=== PATIENT | female | born 1940 | race Caucasian/White ===

== ENCOUNTER 2023-01-14 23:07 | Emergency (ER) | payer MEDICARE ==
[2023-01-14] MEDS ORDERED: XYLOCAINE HCl Viscous MM ONE (23:08)
[2023-01-14 23:55] VITALS: TEMP 98
[2023-01-15] MEDS ORDERED: MORPHINE SULFATE 4 MG INJ IV ONE (00:01)
[2023-01-15] MEDS ORDERED: Zofran 4 MG/2 ML VIAL IV ONE (00:01)
--- NOTE | 2023-01-15 00:06 | ERPHSYRPT ---
- History of Present Illness Time Seen by Provider: 01/14/23 23:16 Historian: patient Exam Limitations: no limitations Patient Subjective Stated Complaint: pt states "my stomach has been hurting for a couple days." Triage Nursing Assessment: pt ambulatory to bed by self without assistance, pt alert and oriented x3, skin pwd, pt c/o intermittent LUQ x2 days, last bm was 01/14/23, last oral intake was 199901/14/23, pt denies n/v/d, pain is worse upon palpation. Physician History: 82 years old female presented in the ER with chief complaint of left upper quadrant/left flank pain for the last 2 days. Dull aching to sharp, moderate to severe in intensity without any significant aggravating or relieving factors. Denies associated nausea vomiting or diarrhea. Last bowel movement was yesterday. Patient denies any urinary complaints. No chest pain palpitations or shortness of breath reported. Patient has no history of hypertension and does not take any medication but her blood pressure is in 200s. She denies any headache, dizziness and lightheadedness. Allergies/Adverse Reactions: No Known Drug Allergies Allergy (Verified 01/18/23 23:13) Home Medications: PANTOPRAZOLE 40 mg Tablet [Protonix 40MG Tablet] 40 mg PO DAILY 01/18/23 [History] Hx Tetanus, Diphtheria Vaccination/Date Given: No Hx Influenza Vaccination/Date Given: No Hx Pneumococcal Vaccination/Date Given: No Immunizations Up to Date: No Travel Risk - International Travel Have you traveled outside of the country in past 3 weeks: No - Coronavirus Screening Are you exhibiting any of the following symptoms?: No Close contact with a COVID-19 positive Pt in past 14-21 Days: No - Vaccine Status Have you recieved a Covid-19 vaccination: No - Review of Systems Constitutional: No Symptoms Eyes: No Symptoms Ears, Nose, & Throat: No Symptoms Respiratory: No Symptoms Cardiac: No Symptoms Abdominal/Gastrointestinal: Abdominal Pain Genitourinary Symptoms: No Symptoms Musculoskeletal: No Symptoms Skin: No Symptoms Neurological: No Symptoms Psychological: No Symptoms Hematologic/Lymphatic: No Symptoms Immunological/Allergic: No Symptoms - Past Medical History Pertinent Past Medical History: No Neurological History: No Pertinent History ENT History: No Pertinent History Cardiac History: No Pertinent History Respiratory History: No Pertinent History Endocrine Medical History: No Pertinent History Musculoskeletal History: No Pertinent History GI Medical History: No Pertinent History History: No Pertinent History Psycho-Social History: No Pertinent History Female Reproductive Disorders: No Pertinent History Other Medical History: pt denies - Past Surgical History Past Surgical History: Yes Neuro Surgical History: No Pertinent History Cardiac: Angioplasty Respiratory: No Pertinent History Gastrointestinal: Appendectomy Genitourinary: No Pertinent History Musculoskeletal: No Pertinent History Female Surgical History: Hysterectomy Other Surgical History: "lens in eye" - Social History Smoking Status: Never smoker Exposure to second hand smoke: No Drug Use: none Patient Lives Alone: Yes - Nursing Vital Signs Nursing Vital Signs: Initial Vital Signs Temperature 98.0 F 01/14/23 23:54 Pulse Rate 99 H 01/14/23 23:54 Respiratory Rate 18 01/14/23 23:54 Blood Pressure 222/96 01/14/23 23:54 O2 Sat by Pulse Oximetry 97 01/14/23 23:54 Pain Scale Pain Intensity 3 - Physical Exam General Appearance: no apparent distress, alert Eye Exam: PERRL/EOMI Ears, Nose, Throat Exam: normal ENT inspection Neck Exam: normal inspection Respiratory Exam: normal breath sounds, lungs clear Cardiovascular Exam: regular rate/rhythm, normal heart sounds Gastrointestinal/Abdomen Exam: soft, normal bowel sounds, tenderness (Right upper quadrant/right flank with no guarding or rebound tenderness) Extremity Exam: normal inspection, normal range of motion Neurologic Exam: alert, oriented x 3, cooperative Skin Exam: normal color SpO2 Interpretation: normal SpO2: 97 O2 Delivery: Room Air Ordered Tests: Medication Summary Discontinued Medications Generic Name Dose Route Start Last Admin Trade Name Freq PRN Reason Stop Dose Admin Al Hydrox/Mg Hydrox/Simethicone Confirm 01/15/23 02:17 Mag Hydrox/Al Hydrox/Simeth 30 Ml Udcup Administered 01/15/23 02:18 Dose 30 ml .ROUTE .STK-MED ONE Lidocaine HCl 20 ml 01/14/23 23:08 Lidocaine Hcl Viscous 1 Ml MM 01/14/23 23:09 .STK-MED ONE Morphine Sulfate 4 mg 01/15/23 00:01 01/15/23 00:14 Morphine Sulfate 4 Mg/Ml Injection IV 01/15/23 00:02 Not Given STAT ONE Ondansetron HCl 4 mg 01/15/23 00:01 01/15/23 00:14 Ondansetron Hcl 4 Mg/2 Ml Vial IV 01/15/23 00:02 Not Given STAT ONE Pantoprazole Sodium Confirm 01/15/23 02:17 Pantoprazole 40 Mg Vial Administered 01/15/23 02:18 Dose 40 mg IV .[facility]-MED ONE Lab/Rad Data: Laboratory Result Diagrams 01/15/23 00:00 01/15/23 00:00 Laboratory Results 01/15/23 01/15/23 01/15/23 Range/Units 00:01 00:01 00:00 WBC (4.0-10.5) x10^3/uL RBC (4.1-5.4) x10^6/uL Hgb (12.0-16.0) g/dL Hct (35-47) % MCV (78-100) fL MCH (26-32) pg MCHC (32-36) g/dL RDW (11.5-14.0) % Plt Count (150-450) x10^3/uL MPV (7.5-11.0) fL Gran % (36.0-66.0) % Immature Gran % (Auto) (0.00-0.4) % Nucleat RBC Rel Count (0.00-0.1) % Eos # (Auto) (0-0.5) x10^3/uL Immature Gran # (Auto) (0.00-0.03) x10^3u/L Absolute Lymphs (auto) (1.0-4.6) x10^3/uL Absolute Monos (auto) (0.0-1.3) x10^3/uL Absolute Nucleated RBC (0.00-0.01) x10^3u/L Lymphocytes % (24.0-44.0) % Monocytes % (0.0-12.0) % Eosinophils % (0.00-5.0) % Basophils % (0.0-0.4) % Absolute Granulocytes (1.4-6.9) x10^3/uL Basophils # (0-0.4) x10^3/uL Sodium (137-145) mmol/L Potassium (3.5-5.1) mmol/L Chloride (98-107) mmol/L Carbon Dioxide (22-30) mmol/L Anion Gap (5-15) MEQ/L BUN (7-17) mg/dL Creatinine (0.52-1.04) mg/dL Estimated GFR ML/MIN Glucose (74-106) mg/dL Lactic Acid 1.5 (0.4-2.0) Calcium (8.4-10.2) mg/dL Total Bilirubin (0.2-1.3) mg/dL AST (14-36) U/L ALT (0-35) U/L Alkaline Phosphatase (38-126) U/L Troponin I < 0.012 (0.000-0.034) ng/mL Serum Total Protein (6.3-8.2) g/dL Albumin (3.5-5.0) g/dL Lipase (23-300) U/L Urine Color Yellow (Yellow) Urine Appearance Clear (Clear) Urine pH 5.5 (4.6-8.0) Ur Specific [place] 1.015 (1.005-1.030) Urine Protein Negative (Negative) Urine Glucose (UA) Negative (Negative) mg/dL Urine Ketones Negative (Negative) Urine Blood Negative (Negative) Urine Nitrite Negative (Negative) Urine Bilirubin Negative (Negative) Urine Urobilinogen 1.0 A (0.2) mg/dL Ur Leukocyte Esterase Trace A (Negative) U Hyaline Cast (Auto) NONE SEEN (0-2) /LPF Urine Microscopic RBC 0-2 (0-5) /HPF Urine Microscopic WBC 3-5 (0-5) /HPF Ur Epithelial Cells Rare (None Seen) /HPF Urine Bacteria None Seen (None Seen) /HPF Urine Culture Reflexed NO (NO) 01/15/23 01/15/23 Range/Units 00:00 00:00 WBC 8.2 (4.0-10.5) x10^3/uL RBC 5.00 (4.1-5.4) x10^6/uL Hgb 13.5 (12.0-16.0) g/dL Hct 42.7 (35-47) % MCV 85.4 (78-100) fL MCH 27.0 (26-32) pg MCHC 31.6 L (32-36) g/dL RDW 14.0 (11.5-14.0) % Plt Count 256 (150-450) x10^3/uL MPV 9.1 (7.5-11.0) fL Gran % 49.9 (36.0-66.0) % Immature Gran % (Auto) 0.4 (0.00-0.4) % Nucleat RBC Rel Count 0.0 (0.00-0.1) % Eos # (Auto) 0.26 (0-0.5) x10^3/uL Immature Gran # (Auto) 0.03 (0.00-0.03) x10^3u/L Absolute Lymphs (auto) 3.10 (1.0-4.6) x10^3/uL Absolute Monos (auto) 0.65 (0.0-1.3) x10^3/uL Absolute Nucleated RBC 0.00 (0.00-0.01) x10^3u/L Lymphocytes % 37.9 (24.0-44.0) % Monocytes % 8.0 (0.0-12.0) % Eosinophils % 3.2 (0.00-5.0) % Basophils % 0.6 (0.0-0.4) % Absolute Granulocytes 4.08 (1.4-6.9) x10^3/uL Basophils # 0.05 (0-0.4) x10^3/uL Sodium 138 (137-145) mmol/L Potassium 3.9 (3.5-5.1) mmol/L Chloride 105 (98-107) mmol/L Carbon Dioxide 21 L (22-30) mmol/L Anion Gap 15.9 H (5-15) MEQ/L BUN 17 (7-17) mg/dL Creatinine 0.69 (0.52-1.04) mg/dL Estimated GFR > 60.0 ML/MIN Glucose 109 H (74-106) mg/dL Lactic Acid (0.4-2.0) Calcium 9.0 (8.4-10.2) mg/dL Total Bilirubin 0.40 (0.2-1.3) mg/dL AST 25 (14-36) U/L ALT 19 (0-35) U/L Alkaline Phosphatase 121 (38-126) U/L Troponin I (0.000-0.034) ng/mL Serum Total Protein 7.6 (6.3-8.2) g/dL Albumin 4.2 (3.5-5.0) g/dL Lipase 116 (23-300) U/L Urine Color (Yellow) Urine Appearance (Clear) Urine pH (4.6-8.0) Ur Specific [place] (1.005-1.030) Urine Protein (Negative) Urine Glucose (UA) (Negative) mg/dL Urine Ketones (Negative) Urine Blood (Negative) Urine Nitrite (Negative) Urine Bilirubin (Negative) Urine Urobilinogen (0.2) mg/dL Ur Leukocyte Esterase (Negative) U Hyaline Cast (Auto) (0-2) /LPF Urine Microscopic RBC (0-5) /HPF Urine Microscopic WBC (0-5) /HPF Ur Epithelial Cells (None Seen) /HPF Urine Bacteria (None Seen) /HPF Urine Culture Reflexed (NO) - Progress Progress: improved, re-examined Progress Note: 01/15/23 00:06 82 years old female presented in the ER with chief complaint of left upper quadrant/left flank pain for the last 2 days. Dull aching to sharp, moderate to severe in intensity without any significant aggravating or relieving factors. Denies associated nausea vomiting or diarrhea. Last bowel movement was yesterday. Patient denies any urinary complaints. No chest pain palpitations or shortness of breath reported. Patient has no history of hypertension and does not take any medication but her blood pressure is in 200s. She denies any headache, dizziness and lightheadedness. Patient has tenderness right upper quadrant/right flank. We will give pain medication for we will obtain an acute abdomen work-up including CT abdomen pelvis. 01/16/23 Patient is feeling better on reevaluation. Acute abdomen lab work fairly unremarkable with normal white count, no acute derangements and chemistries, no UTI. CT abdomen pelvis did not show any acute findings, does have some renal stone nonobstructing and diverticula without diverticulitis. I would not give her antibiotics at this point with negative CT and normal white count. Recommended outpatient follow-up. Discussed signs symptoms of worsening needing return to ER which she seems understanding Patient was discharged at [facility] downtime Counseled pt/family regarding: lab results, diagnosis, need for follow-up, rad results Medical Desision Making - Diagnostic Testing Diagnostic test were ordered, analyzed, and reviewed by me: Yes Radiological Interpretation: Reviewed by me - Departure Departure Disposition: Home Clinical Impression: Left sided abdominal pain Condition: Stable Critical Care Time: No Referrals: DOCTOR,NO FAMILY [Primary Care Provider] - Follow up with PCP 1 day Instructions: Severe Abdominal Pain, Adult (DC)
[2023-01-15 00:23] LABS: Absolute Neutrophil Ct (ANC) 4.08 x10^3/uL (1.4-6.9); BASOPHIL % 0.6 % (0.0-0.4); Basophil (Absolute #) 0.05 x10^3/uL (0-0.4); Eosinophil % 3.2 % (0.00-5.0); Eosinophil (Absolute #) 0.26 x10^3/uL (0-0.5); Hematocrit 42.7 % (35-47); Hemoglobin 13.5 g/dL (12.0-16.0); IMMATURE GRAN # 0.03 x10^3u/L (0.00-0.03); IMMATURE GRAN % 0.4 % (0.00-0.4); Lymphocytes % 37.9 % (24.0-44.0); Mean Cell Volume 85.4 fL (78-100); Mean Corpuscular Hgb Concent. 31.6 g/dL (32-36); Mean Platelet Volume 9.1 fL (7.5-11.0); Monocyte (Absolute #) 0.65 x10^3/uL (0.0-1.3); Neutrophil % 49.9 % (36.0-66.0); Platelet Count 256 x10^3/uL (150-450); White Blood Count 8.2 x10^3/uL (4.0-10.5)
[2023-01-15] MEDS ORDERED: MAALOX ES 30 ML UNIT DOSE ONE (02:17)
[2023-01-15] MEDS ORDERED: PROTONIX 40 MG IV IV ONE (02:17)
[2023-01-15 03:52] VITALS: BP 158/86; PULSE 87; RESP 15
[2023-01-15 04:25] LABS: Appearance Clear (Clear); Bacteria None Seen /HPF (None Seen); Bilirubin Negative (Negative); Blood Negative (Negative); Epithelial Cells Rare /HPF (None Seen); Glucose, Urine Negative (Negative); Hyaline Casts NONE SEEN /LPF (0-2); Ketones Negative (Negative); Leukocyte Esterase Trace (Negative); Nitrite Negative (Negative); Ph 5.5 (4.6-8.0); Protein,Urine Dip Negative (Negative); RBC 0-2 /HPF (0-5); Specific Gravity 1.015 (1.005-1.030)
[2023-01-15 04:26] LABS: ADD URINE CULTURE? NO (NO)
[2023-01-15 04:28] LABS: ALBUMIN 4.2 g/dL (3.5-5.0); ALKALINE PHOSPHATASE 121 U/L (38-126); BLOOD UREA NITROGEN 17 mg/dL (7-17); CHLORIDE 105 mmol/L (98-107); Carbon Dioxide 21 mmol/L (22-30); Creatinine 1 0.69 mg/dL (0.52-1.04); EST GLOMERULAR FILTRATION RATE > 60.0 ML/MIN; Glucose 109 mg/dL (74-106); LIPASE 116 U/L (23-300); Potassium 3.9 mmol/L (3.5-5.1); SGOT/AST 25 U/L (14-36); SGPT/ALT 19 U/L (0-35); SODIUM 138 mmol/L (137-145); Total Protein 7.6 g/dL (6.3-8.2)
[2023-01-15 04:47] LABS: ANION GAP 15.9 MEQ/L (5-15)
--- NOTE | 2023-01-15 09:36 | XRAY ---
CLINICAL HISTORY:LUQ/Flankpain COMPARISON:None. TECHNIQUE:CT of the abdomen and pelvis was performed with axial images as well as sagittal and coronal reconstruction images without intravenous contrast. FINDINGS: The liver is normal in size, and morphology and appears unremarkable with no intrahepatic or extrahepatic bile duct dilation. Unremarkable appearing gallbladder with no stone wall thickening or pericholecystic inflammatory changes or fluid. Unremarkable appearing pancreas. No pancreatic mass or ductal dilatation is seen. Unremarkable appearing spleen. The adrenal glands are normal. The kidneys appear unremarkable with no cysts masses or hydronephrosis. A non-obstructing calculus is noted at the lower pole of the left kidney measuring 6.5 x 5.5 mm. A small cyst is noted at the lower pole of the left kidney measuring 2 cm. The ureters are normal with no stones. Unremarkable abdominal aorta without specific evidence of aneurysm or dissection. IVC is normal. Moderate-sized hiatal hernia. The stomach appears unremarkable. Unremarkable appearing duodenum. Small Bowel loops are unremarkable with no abnormality Diverticula of the descending colon and sigmoid colon without sign of the diverticulitis noted. No free air and no ascites. No free intraperitoneal air is seen. Bladder is unremarkable with no stones. Uterus is surgically absent. Vaginal stump is unremarkable. No adnexal or pelvic mass. The scan through the lower chest is clear. Moderate degenerative changes seen in the visualized spine. IMPRESSION: A non-obstructing calculus is noted at the lower pole of left kidney measuring 6.5 x 5.5 mm. Moderate-sized hiatal hernia. Diverticula of the descending colon and sigmoid colon without sign of the diverticulitis Electronically Signed by: Jose Pride MD. (01/15/2023 00:39:09 [employer])
[2023-01-22 10:52] VITALS: O2SAT 97
== END 2023-01-15 02:40 | disposition home or self-care (01) ==
LOC: ED 23:07
DX: R10.12 Left upper quadrant pain (principal); R10.32 Left lower quadrant pain
CPT/HCPCS: 36000; 36415; 74176; 80053; 81001; 83605; 83690; 84484; 85025; 99283; A9270-GY

== ENCOUNTER 2023-01-18 22:45 | Emergency (ER) | payer MEDICARE ==
[2023-01-18 23:15] VITALS: TEMP 97.8
[2023-01-18 23:24] LABS: BASOPHIL % 0.5 % (0.0-0.4); Basophil (Absolute #) 0.05 x10^3/uL (0-0.4); Eosinophil % 2.5 % (0.00-5.0); Eosinophil (Absolute #) 0.28 x10^3/uL (0-0.5); Hematocrit 45.6 % (35-47); Hemoglobin 14.3 g/dL (12.0-16.0); IMMATURE GRAN # 0.03 x10^3u/L (0.00-0.03); IMMATURE GRAN % 0.3 % (0.00-0.4); Lymphocytes % 32.6 % (24.0-44.0); Mean Cell Volume 86.2 fL (78-100); Mean Corpuscular Hgb Concent. 31.4 g/dL (32-36); Monocyte (Absolute #) 0.77 x10^3/uL (0.0-1.3); Neutrophil % 57.1 % (36.0-66.0); Platelet Count 277 x10^3/uL (150-450); Red Blood Count 5.29 x10^6/uL (4.1-5.4); Red Cell Distribution Width 13.7 % (11.5-14.0)
[2023-01-18 23:33] LABS: ADD URINE CULTURE? YES (NO); Appearance Cloudy (Clear); Bacteria None Seen /HPF (None Seen); Bilirubin Small (Negative); Blood Large (Negative); Epithelial Cells None Seen /HPF (None Seen); Glucose, Urine Negative (Negative); Hyaline Casts NONE SEEN /LPF (0-2); Ketones Negative (Negative); Leukocyte Esterase Large (Negative); Nitrite Negative (Negative); Ph 5.5 (4.6-8.0); Protein,Urine Dip 300 (Negative); RBC >100 /HPF (0-5); Specific Gravity <=1.005 (1.005-1.030); Urobilinogen 0.2 mg/dL (0.2); WBC 51-100 /HPF (0-5)
[2023-01-18 23:37] LABS: ALBUMIN 4.6 g/dL (3.5-5.0); ALKALINE PHOSPHATASE 122 U/L (38-126); ANION GAP 11.9 MEQ/L (5-15); BLOOD UREA NITROGEN 18 mg/dL (7-17); CHLORIDE 103 mmol/L (98-107); Calcium 9.1 mg/dL (8.4-10.2); Carbon Dioxide 28 mmol/L (22-30); Creatinine 1 0.83 mg/dL (0.52-1.04); EST GLOMERULAR FILTRATION RATE > 60.0 ML/MIN; Glucose 109 mg/dL (74-106); Potassium 4.4 mmol/L (3.5-5.1); SGOT/AST 27 U/L (14-36); SGPT/ALT 22 U/L (0-35); SODIUM 139 mmol/L (137-145); Total Protein 8.1 g/dL (6.3-8.2)
[2023-01-18 23:39] LABS: INR 0.94 (0.8-3.0); PROTIME 10.3 SECONDS (9.4-12.5); PTT 27.4 SECONDS (25.1-36.5)
--- NOTE | 2023-01-18 23:58 | ERPHSYRPT ---
- History of Present Illness Source: patient Exam Limitations: no limitations Patient Subjective Stated Complaint: pt states " I went to the bathroom and theres a lot of blood in it." Triage Nursing Assessment: pt ambulatory to bed by self, granddaughter at bedside, pt alert and oriented x3, skin pwd, pt c/o hematuria that started about an hr ago, pt also complaining of bilateral lower back pain 4/10, pt was seen recently in this ER and was diagnosed with hiatal hernia and prescribed protonix to take at home, urine red in color with clots noted during triage. Physician History: 82 yo WF w hematuria starting at 22:30 tonight. Pt has L flank/L CVA pain which is currently 3/10. She denies dysuria/fever/N/V but has had some increased frequency. She was seen on 01/14/23 in the ER and diagnosed w a hiatal hernia. Pt has a h/o kidney stones in 1986 which were treated w lithotripsy. Timing/Duration: other (22:30 tonight) Activites at Onset: rest Quality: sharpness, stabbing Onset Location: left flank, low back pain (L CVA) Pain Radiation: groin (L abdomen) Severity of Pain-Max: severe Severity of Pain-Current: mild Sexual intercourse history: non-contributory Modifying Factors: Improves With: nothing Associated Symptoms: denies symptoms, urinary frequency, No dysuria Allergies/Adverse Reactions: No Known Drug Allergies Allergy (Verified 01/18/23 23:13) Home Medications: PANTOPRAZOLE 40 mg Tablet [Protonix 40MG Tablet] 40 mg PO DAILY 01/18/23 [History] Hx Tetanus, Diphtheria Vaccination/Date Given: No Hx Influenza Vaccination/Date Given: No Hx Pneumococcal Vaccination/Date Given: No Travel Risk - International Travel Have you traveled outside of the country in past 3 weeks: No - Coronavirus Screening Are you exhibiting any of the following symptoms?: No Close contact with a COVID-19 positive Pt in past 14-21 Days: No - Vaccine Status Have you recieved a Covid-19 vaccination: No - Review of Systems Constitutional: No Symptoms Eyes: No Symptoms Ears, Nose, & Throat: No Symptoms Respiratory: No Symptoms Cardiac: No Symptoms Abdominal/Gastrointestinal: No Symptoms Genitourinary Symptoms: No Symptoms, Frequency, Hematuria Musculoskeletal: No Symptoms Skin: No Symptoms Neurological: No Symptoms Psychological: No Symptoms Endocrine: No Symptoms Hematologic/Lymphatic: No Symptoms Immunological/Allergic: No Symptoms - Past Medical History Pertinent Past Medical History: Yes Neurological History: No Pertinent History ENT History: No Pertinent History Cardiac History: No Pertinent History Respiratory History: No Pertinent History Endocrine Medical History: No Pertinent History Musculoskeletal History: No Pertinent History GI Medical History: Hernia History: No Pertinent History Psycho-Social History: No Pertinent History Female Reproductive Disorders: No Pertinent History Other Medical History: hiatal hernia - Past Surgical History Past Surgical History: Yes Neuro Surgical History: No Pertinent History Cardiac: Angioplasty Respiratory: No Pertinent History Gastrointestinal: Appendectomy Genitourinary: No Pertinent History Musculoskeletal: No Pertinent History Female Surgical History: Hysterectomy Other Surgical History: "lens in eye" - Social History Smoking Status: Never smoker Exposure to second hand smoke: No Drug Use: none Patient Lives Alone: Yes - Nursing Vital Signs Nursing Vital Signs: Initial Vital Signs Temperature 97.8 F 01/18/23 23:13 Pulse Rate 100 H 01/18/23 23:13 Respiratory Rate 18 01/18/23 23:13 Blood Pressure 199/88 01/18/23 23:13 O2 Sat by Pulse Oximetry 97 01/18/23 23:13 Pain Scale Pain Intensity 4 Hypertensive/Tachy - Physical Exam General Appearance: no apparent distress Eye Exam: PERRL/EOMI, eyes nml inspection Ears, Nose, Throat Exam: normal ENT inspection, TMs normal, pharynx normal, moist mucous membranes Neck Exam: normal inspection, non-tender, supple, full range of motion, No meningismus, No mass, No Brudzinski, No Kernig's Respiratory Exam: normal breath sounds, lungs clear, airway intact, No r espiratory distress Cardiovascular Exam: tachycardia, No murmur Gastrointestinal/Abdomen Exam: soft, normal bowel sounds, tenderness (Mild L flank TTP wo guarding or rebound) Back Exam: normal inspection, normal range of motion, CVA tenderness (L CVA ttp mild at best), No vertebral tenderness Extremity Exam: normal inspection, normal range of motion Neurologic Exam: alert, oriented x 3, cooperative, land resource specialist II-XII nml as tested, normal mood/affect, nml station & gait, sensation nml Skin Exam: normal color Lymphatic Exam: No adenopathy SpO2 Interpretation: normal SpO2: 97 O2 Delivery: Room Air - Course Nursing assessment & vital signs reviewed: Yes - CT Exams Abdomen/Pelvis CT Interpretation: Tele-radiologist Report (Small foci of air in bladder) Ordered Tests: Active Orders 24 hr Category Date Time Status ABDOMEN AND PELVIS W/0 CONTRAS [CT] Stat Exams 01/18/23 23:13 Completed CBC W DIFF Stat Lab 01/18/23 23:15 Completed CMP Stat Lab 01/18/23 23:15 Completed CULTURE,URINE Stat Lab 01/18/23 23:13 Received Lactic Acid Stat Lab 01/19/23 00:17 Completed PROTIME WITH INR Stat Lab 01/18/23 23:15 Completed PTT Stat Lab 01/18/23 23:15 Completed UA W/RFX UR CULTURE Stat Lab 01/18/23 23:13 Completed Medication Summary Discontinued Medications Generic Name Dose Route Start Last Admin Trade Name Freq PRN Reason Stop Dose Admin Ceftriaxone Sodium/Dextrose 1 g in 50 mls @ 100 mls/hr 01/19/23 00:28 01/19/23 01:05 Rocephin 1 Gm-D5w 50 Ml Bag IV 01/19/23 00:57 Infused STAT STA Infusion Sodium Chloride 1,000 mls @ 999 mls/hr 01/19/23 00:29 01/19/23 01:46 Sodium Chloride 0.9% 1000 Ml IV 01/19/23 01:29 Infused .Q1H1M STA Infusion Sodium Chloride Confirm 01/19/23 00:31 Sodium Chloride 0.9% 1000 Ml Administered 01/19/23 00:32 Dose 1,000 mls @ ud .ROUTE .STK-MED ONE Ceftriaxone Sodium/Dextrose Confirm 01/19/23 00:31 Rocephin 1 Gm-D5w 50 Ml Bag Administered 01/19/23 00:32 Dose 1 g in 50 mls @ ud IV .STK-MED ONE Lab/Rad Data: Laboratory Result Diagrams 01/18/23 23:15 01/18/23 23:15 Laboratory Results 01/19/23 01/18/23 01/18/23 Range/Units 00:17 23:15 23:15 WBC (4.0-10.5) x10^3/uL RBC (4.1-5.4) x10^6/uL Hgb (12.0-16.0) g/dL Hct (35-47) % MCV (78-100) fL MCH (26-32) pg MCHC (32-36) g/dL RDW (11.5-14.0) % Plt Count (150-450) x10^3/uL MPV (7.5-11.0) fL Gran % (36.0-66.0) % Immature Gran % (Auto) (0.00-0.4) % Nucleat RBC Rel Count (0.00-0.1) % Eos # (Auto) (0-0.5) x10^3/uL Immature Gran # (Auto) (0.00-0.03) x10^3u/L Absolute Lymphs (auto) (1.0-4.6) x10^3/uL Absolute Monos (auto) (0.0-1.3) x10^3/uL Absolute Nucleated RBC (0.00-0.01) x10^3u/L Lymphocytes % (24.0-44.0) % Monocytes % (0.0-12.0) % Eosinophils % (0.00-5.0) % Basophils % (0.0-0.4) % Absolute Granulocytes (1.4-6.9) x10^3/uL Basophils # (0-0.4) x10^3/uL PT 10.3 (9.4-12.5) SECONDS INR 0.94 (0.8-3.0) APTT 27.4 (25.1-36.5) SECONDS Sodium 139 (137-145) mmol/L Potassium 4.4 (3.5-5.1) mmol/L Chloride 103 (98-107) mmol/L Carbon Dioxide 28 (22-30) mmol/L Anion Gap 11.9 (5-15) MEQ/L BUN 18 H (7-17) mg/dL Creatinine 0.83 (0.52-1.04) mg/dL Estimated GFR > 60.0 ML/MIN Glucose 109 H (74-106) mg/dL Lactic Acid 1.8 (0.4-2.0) Calcium 9.1 (8.4-10.2) mg/dL Total Bilirubin 0.40 (0.2-1.3) mg/dL AST 27 (14-36) U/L ALT 22 (0-35) U/L Alkaline Phosphatase 122 (38-126) U/L Serum Total Protein 8.1 (6.3-8.2) g/dL Albumin 4.6 (3.5-5.0) g/dL Urine Color (Yellow) Urine Appearance (Clear) Urine pH (4.6-8.0) Ur Specific [place] (1.005-1.030) Urine Protein (Negative) Urine Glucose (UA) (Negative) mg/dL Urine Ketones (Negative) Urine Blood (Negative) Urine Nitrite (Negative) Urine Bilirubin (Negative) Urine Urobilinogen (0.2) mg/dL Ur Leukocyte Esterase (Negative) U Hyaline Cast (Auto) (0-2) /LPF Urine Microscopic RBC (0-5) /HPF Urine Microscopic WBC (0-5) /HPF Ur Epithelial Cells (None Seen) /HPF Urine Bacteria (None Seen) /HPF Urine Culture Reflexed (NO) 01/18/23 01/18/23 Range/Units 23:15 23:13 WBC 11.0 H (4.0-10.5) x10^3/uL RBC 5.29 (4.1-5.4) x10^6/uL Hgb 14.3 (12.0-16.0) g/dL Hct 45.6 (35-47) % MCV 86.2 (78-100) fL MCH 27.0 (26-32) pg MCHC 31.4 L (32-36) g/dL RDW 13.7 (11.5-14.0) % Plt Count 277 (150-450) x10^3/uL MPV 9.0 (7.5-11.0) fL Gran % 57.1 (36.0-66.0) % Immature Gran % (Auto) 0.3 (0.00-0.4) % Nucleat RBC Rel Count 0.0 (0.00-0.1) % Eos # (Auto) 0.28 (0-0.5) x10^3/uL Immature Gran # (Auto) 0.03 (0.00-0.03) x10^3u/L Absolute Lymphs (auto) 3.60 (1.0-4.6) x10^3/uL Absolute Monos (auto) 0.77 (0.0-1.3) x10^3/uL Absolute Nucleated RBC 0.00 (0.00-0.01) x10^3u/L Lymphocytes % 32.6 (24.0-44.0) % Monocytes % 7.0 (0.0-12.0) % Eosinophils % 2.5 (0.00-5.0) % Basophils % 0.5 (0.0-0.4) % Absolute Granulocytes 6.30 (1.4-6.9) x10^3/uL Basophils # 0.05 (0-0.4) x10^3/uL PT (9.4-12.5) SECONDS INR (0.8-3.0) APTT (25.1-36.5) SECONDS Sodium (137-145) mmol/L Potassium (3.5-5.1) mmol/L Chloride (98-107) mmol/L Carbon Dioxide (22-30) mmol/L Anion Gap (5-15) MEQ/L BUN (7-17) mg/dL Creatinine (0.52-1.04) mg/dL Estimated GFR ML/MIN Glucose (74-106) mg/dL Lactic Acid (0.4-2.0) Calcium (8.4-10.2) mg/dL Total Bilirubin (0.2-1.3) mg/dL AST (14-36) U/L ALT (0-35) U/L Alkaline Phosphatase (38-126) U/L Serum Total Protein (6.3-8.2) g/dL Albumin (3.5-5.0) g/dL Urine Color Red A (Yellow) Urine Appearance Cloudy A (Clear) Urine pH 5.5 (4.6-8.0) Ur Specific [place] <=1.005 (1.005-1.030) Urine Protein 300 A (Negative) Urine Glucose (UA) Negative (Negative) mg/dL Urine Ketones Negative (Negative) Urine Blood Large A (Negative) Urine Nitrite Negative (Negative) Urine Bilirubin Small A (Negative) Urine Urobilinogen 0.2 (0.2) mg/dL Ur Leukocyte Esterase Large A (Negative) U Hyaline Cast (Auto) NONE SEEN (0-2) /LPF Urine Microscopic RBC >100 A (0-5) /HPF Urine Microscopic WBC 51-100 A (0-5) /HPF Ur Epithelial Cells None Seen (None Seen) /HPF Urine Bacteria None Seen (None Seen) /HPF Urine Culture Reflexed YES (NO) - Progress Progress Note: 01/19/23 01:54 Nursing note and vital signs reviewed No food or housing insecurities noted All labs reviewed and shared w pt CT result reviewed and shared w pt 1L NS bolus 1gm IV Rocephin 01/19/23 01:55 Pt refused pain meds throughout stay Counseled pt/family regarding: lab results, diagnosis, need for follow-up, rad results Medical Desision Making - Diagnostic Testing Diagnostic test were ordered, analyzed, and reviewed by me: Yes Radiological Interpretation: Reviewed by me - Risk of complications The pt has a mod risk of morbidity or mortality based on: Need for prescription drug management - Departure Departure Disposition: Home Clinical Impression: Cystitis Condition: Stable Critical Care Time: No Referrals: AZAM ROBERT MD [Primary Care Provider] - Follow up/PCP as directed Instructions: Acute Cystitis (DC) Additional Instructions: Fluids Levaquin once a day for 5 days Follow up with your family MD in 1-2 days Return to ER for increasing pain or temperature greater than 100.5 Prescriptions: Levofloxacin [Levofloxacin 500 MG Tablet] 500 mg PO DAILY 5 Days #5 tablet
--- NOTE | 2023-01-19 00:16 | XRAY ---
CLINICAL HISTORY:hematuria COMPARISON:01/15/2023. TECHNIQUE:CT of the abdomen and pelvis was performed with axial images as well as sagittal and coronal reconstruction images without intravenous contrast. DLP: 885.36 mGy*cm. CTDI: 19.06 mGy. FINDINGS: The liver is normal in size, and morphology and appears unremarkable with no intrahepatic or extrahepatic bile duct dilation. Unremarkable appearing gallbladder with no stone wall thickening or pericholecystic inflammatory changes or fluid. Unremarkable appearing pancreas. No pancreatic mass or ductal dilatation is seen. Unremarkable appearing spleen. The adrenal glands are normal. The kidneys appear unremarkable with no cysts masses or hydronephrosis. A non-obstructing calculus is noted at the lower pole of the left kidney measuring 6.5 x 5.5 mm. A small cyst is noted at the lower pole of the left kidney measuring 2 cm. The ureters are normal with no stones. Unremarkable abdominal aorta without specific evidence of aneurysm or dissection. IVC is normal. Moderate-sized hiatal hernia. The stomach appears unremarkable. Unremarkable appearing duodenum. Small Bowel loops are unremarkable with no abnormality Diverticula of the descending colon and sigmoid colon without sign of the diverticulitis noted. No free air and no ascites. No free intraperitoneal air is seen. No stones were seen urinary bladder. Small foci of air are noted in the urinary bladder. The uterus is surgically absent. The vaginal stump is unremarkable. No adnexal or pelvic mass. The scan through the lower chest is clear. Moderate degenerative changes are seen in the visualized spine. IMPRESSION: 1. Small foci of air are noted in the urinary bladder, a new finding since the previous scan, concerning cystitis. Further clinical correlation is advised. 2. Stable non-obstructing calculus is noted at the lower pole of the left kidney measuring 6.5 x 5.5 mm. 3. Moderate-sized hiatal hernia. 4. Diverticula of the descending colon and sigmoid colon without sign of the diverticulitis. Electronically Signed by: Jose Pride MD. (01/18/2023 23:15:56 FINANCE INSURANCE MANAGER)
[2023-01-19] MEDS ORDERED: ROCEPHIN 1 Gm-D5w 50 ml Bag** 1 G/50 ML IVPB IV STA (00:28)
[2023-01-19] MEDS ORDERED: Sodium Chloride 0.9% 1000 ML 1,000 ML IV STA (00:29)
[2023-01-19] MEDS ORDERED: ROCEPHIN 1 Gm-D5w 50 ml Bag** 1 G/50 ML IVPB IV ONE (00:31)
[2023-01-19] MEDS ORDERED: Sodium Chloride 0.9% 1000 ML 1,000 ML ONE (00:31)
[2023-01-19 01:05] VITALS: BP 166/65; PULSE 67; RESP 15
[2023-01-19 01:19] VITALS: O2SAT 97
== END 2023-01-19 01:47 | disposition home or self-care (01) ==
LOC: ED 22:45
DX: N30.91 Cystitis, unspecified with hematuria (principal); R10.9 Unspecified abdominal pain; R35.0 Frequency of micturition; Z79.899 Other long term (current) drug therapy; Z28.310 Unvaccinated for COVID-19
CPT/HCPCS: 36415; 74176; 80053; 81001; 83605; 85025; 85610; 85730; 87077; 87086; 87186; 96360; 99284; J0696

== ENCOUNTER 2023-09-20 08:19 | Day surgery (SDC) | payer MEDICARE ==
[2023-09-20] MEDS ORDERED: Lactated Ringers 1,000 ML IV ONE (08:32)
[2023-09-20 08:50] VITALS: RESP 16
[2023-09-20] MEDS: Lactated Ringers 1,000 ML IV SCH (09:15)
--- NOTE | 2023-09-20 09:47 | HP ---
DATE OF SURGERY: 09/20/2023 HISTORY OF PRESENT ILLNESS: The patient is an 82-year-old last colonoscopy six years ago and had polyps. No bloody stools. No change in bowel habits. No new pain. She has occasional left abdominal aches for several months. No recent changes. Family history no colon cancer. PAST MEDICAL HISTORY: Cataracts. She has dentures and corrective lenses in the past. PAST SURGICAL HISTORY: Benign breast biopsy several years ago. Colonoscopy. Cataract surgery. Hysterectomy. MEDICATIONS: None on a regular basis. ALLERGIES: NKDA. FAMILY HISTORY: Negative for colon cancer. SOCIAL HISTORY: No smoking or alcohol abuse. REVIEW OF SYSTEMS: Twelve systems reviewed. No chest pain or palpitations. Other systems negative or noncontributory as above and per preadmission questionnaire. PHYSICAL EXAMINATION: Height 5 feet 1 inch. BMI 30.55. GENERAL: No acute distress. HEENT: Sclerae nonicteric. EOMI. Oral mucous membranes moist. NECK: No JVD. CHEST: Equal excursion, nonlabored breathing. CVS: Regular rate and rhythm. ABDOMEN: Soft. No peritoneal signs. EXTREMITIES: No cyanosis. NEURO: Alert, oriented, moving extremities symmetrically. RECTAL: Deferred timed to endoscopy exam. PSYCH: Appropriate mood and affect. SKIN: Dry. IMPRESSION: History of polyps, need follow up screening colonoscopy. I feel the patient is a candidate. Risks explained in detail including but not limited to bleeding or infection, risk of bowel injury or perforation, risk of missed or nondiagnosis or incomplete exam, possible need for open procedure or referral. Risk of anesthesia or sedation, risk of bowel prep or sedation but not limited to. She understands and agrees to the planned procedure. Will proceed with outpatient colonoscopy under MAC anesthesia.
[2023-09-20] MEDS ORDERED: Xylocaine-Mpf 2% 5 Ml Vial ONE (11:47)
[2023-09-20] MEDS ORDERED: Amidate 20 MG/10 ML IV ONE (11:48)
[2023-09-20] MEDS ORDERED: DIPRIVAN 200 MG/20 ML IV ONE ×2 (11:48→12:20)
[2023-09-20] MEDS ORDERED: ATROPINE SULFATE 1MG ONE (12:06)
[2023-09-20] MEDS ORDERED: GlucaGen 1 MG ONE (12:07)
[2023-09-20] MEDS ORDERED: BREVIBLOC 100 MG/10 ML IV ONE (12:12)
[2023-09-20] MEDS ORDERED: SUBLIMAZE 100 MCG/2 ML ONE (12:13)
[2023-09-20 12:54] VITALS: O2SAT 92
[2023-09-20 13:11] VITALS: BP 142/74; PULSE 75; TEMP 96.9
--- NOTE | 2023-09-20 13:58 | OP ---
SURGERY DATE/TIME: 09/20/2023 1152 PREOPERATIVE DIAGNOSIS: History of polyps. POSTOPERATIVE DIAGNOSES: 1) Very tortuous colon. 2) Moderate to severe diverticulosis. 3) Very tortuous colon. 4) ASA Class II. PROCEDURE: Colonoscopy to transverse colon with hot biopsy polypectomy of small early polyp versus hyperplastic lesion to sigmoid colon. SURGEON: Dr. Betito Sewell M.D. ANESTHESIA: MAC. QUANTITATIVE BLOOD LOSS: Minimal. INDICATIONS: As noted above. Risks and benefits explained in detail but not limited to and consent obtained. DESCRIPTION OF PROCEDURE AND FINDINGS: The patient is taken to the endoscopy room. MAC anesthesia induced. After official time out and no disagreement with planned procedure, in lateral position digital rectal exam did not reveal any rectal masses. She had some minimal hemorrhoids. Video colonoscope passed up the tortuous sigmoid, descending colon to what seemed to be the distal part of the transverse colon. Because of the tortuosity it could not be reduced enough to safely advance further despite multiple position changes on either side, on her back, two different staff members putting pressure on her abdomen. It did not allow the area that straightened to be able to safely pass this area. There was no visible mass or obstructing lesion here just seemed to be a very sharp angulated area and would not allow the scope to pass through safely. It was felt further pushing would greatly increase risk of perforation with little benefit. It was felt safest to go ahead and abort further passes of the scope further upstream. Slowly and carefully withdrawal of the scope and order outpatient barium enema for further evaluation. The scope was carefully withdrawn. It had moderate to severe diverticulosis in the left colon. Small polyp in sigmoid colon was removed with hot biopsy polypectomy. Good hemostasis noted. Small early polyp versus hyperplastic lesion seemed to be removed. The scope is withdrawn. No signs of any large polyps, masses but again prep overall seemed to be good. The scope is withdrawn. The findings were discussed with the family over the phone.
== END 2023-09-20 13:20 | disposition home or self-care (01) ==
LOC: SDC 08:19
PROVIDERS: ATTEND Surgery
DX: Z12.11 Encounter for screening for malignant neoplasm of colon (principal); Z09 Encounter for follow-up examination after completed treatment for conditions other than malignant neoplasm; Z86.010 Personal history of colon polyps; K57.30 Diverticulosis of large intestine without perforation or abscess without bleeding; K63.5 Polyp of colon; K64.9 Unspecified hemorrhoids
CPT/HCPCS: 93005; 99100; J0461; J1610; J2704; J3010

== ENCOUNTER 2024-09-21 09:37 | Observation (INO) | payer MEDICARE ==
--- NOTE | 2024-09-21 10:13 | ERPHSYRPT ---
- History of Present Illness Time Seen by Provider: 09/21/24 10:09 Source: patient Exam Limitations: no limitations Patient Subjective Stated Complaint: pt here for pain to right knee that is chronic for her but states last couple days she states that the left leg has been painful from thigh to calf. Triage Nursing Assessment: pt alert, walked in with walker, able to undress, resp easy, skin w/d/p. has swelling to lower leg, pain with palpation, no redness noted Physician History: 84-year-old female who does not have regular primary care follow-up presents to our ED for evaluation of pain to her right leg x 2 days. Patient states pain extends from her distal thigh down to her foot. No trauma no fever. Patient admits to history of chronic right knee pain however this pain is more intense and involves the thigh and lower leg. Patient declined pain medication. Symptoms are constant. Symptoms are moderate in intensity. No specific worsening improving factors. Patient adds that she has been experiencing some intermittent left chest pain as well. No shortness of breath. No nausea vomiting or diaphoresis. Patient is hypertensive with a systolic blood pressure of 218 on the library monitor. Patient voices no other complaints or concerns at this time. Portions of this note were created with voice recognition technology. There may be grammatical, spelling, punctuation or sound alike errors Timing/Duration: day(s) Severity: moderate (2 days) Modifying Factors: Improves With: nothing Associated Symptoms: other (Chest pain) Allergies/Adverse Reactions: No Known Drug Allergies Allergy (Verified 09/21/24 09:47) Home Medications: No Reportable Medications [No Reported Medications] 09/09/23 [History] Hx Tetanus, Diphtheria Vaccination/Date Given: No Hx Influenza Vaccination/Date Given: No Hx Pneumococcal Vaccination/Date Given: No Immunizations Up to Date: No Travel Risk - International Travel Have you traveled outside of the country in past 3 weeks: No - Emerging Infectious Disease Are you exhibiting symptoms associated with any current EIDs: No - Review of Systems Constitutional: No Symptoms, No Fever, No Chills Eyes: No Symptoms Ears, Nose, & Throat: No Symptoms Respiratory: No Symptoms, No Cough, No Dyspnea Cardiac: No Symptoms, No Chest Pain, No Edema, No Syncope Abdominal/Gastrointestinal: No Symptoms, No Abdominal Pain, No Nausea, No Vomiting, No Diarrhea Genitourinary Symptoms: No Symptoms, No Dysuria Musculoskeletal: No Symptoms, No Back Pain, No Neck Pain Skin: No Symptoms, No Rash Neurological: No Symptoms, No Dizziness, No Focal Weakness, No Sensory Changes Psychological: No Symptoms Endocrine: No Symptoms Hematologic/Lymphatic: No Symptoms Immunological/Allergic: No Symptoms All Other Systems: Reviewed and Negative - Past Medical History Pertinent Past Medical History: Yes Neurological History: No Pertinent History ENT History: No Pertinent History Cardiac History: No Pertinent History Respiratory History: No Pertinent History Endocrine Medical History: No Pertinent History Musculoskeletal History: No Pertinent History GI Medical History: Hernia History: No Pertinent History Psycho-Social History: No Pertinent History Female Reproductive Disorders: No Pertinent History Other Medical History: hiatal hernia - Past Surgical History Past Surgical History: Yes Neuro Surgical History: No Pertinent History Cardiac: Angioplasty Respiratory: No Pertinent History Gastrointestinal: Appendectomy Genitourinary: No Pertinent History Musculoskeletal: No Pertinent History Female Surgical History: Hysterectomy Other Surgical History: "lens in eye", colonoscopy,breast bx - Social History Smoking Status: Never smoker Exposure to second hand smoke: No Drug Use: none - Social Determinants of Health Will the patient participate in the screening: Declined to provide - Nursing Vital Signs Nursing Vital Signs: Initial Vital Signs Temperature 99.0 F 09/21/24 09:54 Pulse Rate 98 H 09/21/24 09:54 Respiratory Rate 18 09/21/24 09:54 Blood Pressure 218/98 09/21/24 09:54 O2 Sat by Pulse Oximetry 96 09/21/24 09:54 Pain Scale Pain Intensity 6 - Physical Exam General Appearance: no apparent distress, alert Eye Exam: PERRL/EOMI, eyes nml inspection Ears, Nose, Throat Exam: normal ENT inspection, moist mucous membranes Neck Exam: normal inspection, full range of motion Respiratory Exam: normal breath sounds, lungs clear, No respiratory distress Cardiovascular Exam: regular rate/rhythm, normal peripheral pulses Gastrointestinal/Abdomen Exam: soft, normal bowel sounds, No tenderness, No mass Back Exam: normal inspection, normal range of motion, No CVA tenderness, No vertebral tenderness Extremity Exam: normal inspection, normal range of motion, pelvis stable, keith's sign, other (Positive Homans' sign right lower extremity. Knee tenderness. Knee ligaments are stable. The involved extremities neurovascular intact distally compartments are soft cap refill less than 2 seconds.) Neurologic Exam: alert, oriented x 3, cooperative, normal mood/affect, sensation nml, No motor deficits Skin Exam: normal color, warm, dry, No rash Lymphatic Exam: No adenopathy SpO2 Interpretation: normal SpO2: 95 O2 Delivery: Room Air - Course Nursing assessment & vital signs reviewed: Yes EKG Interpreted by Me: RATE (67), Sinus Rhythm, NORMAL AXIS, NORMAL INTERVALS, NORMAL QRS - Radiology Exams Knee X-ray Interpretation: Teleradiologist Report (Chronic bony changes of the knee.) Chest X-ray Interpretation: Teleradiologist Report (Right base atelectasis versus infiltrate. Otherwise no acute findings) - Radiology Ultrasound Exam Venous Lower Extremity Ultrasound: tele radiology report (Right leg ultrasound negative for DVT.) Ordered Tests: Active Orders 24 hr Category Date Time Status Eyelet Punch Operator STAT Care 09/21/24 10:07 Active EKG-ER Only STAT Care 09/21/24 10:02 Active Pulse Oximetry (ED) STAT Care 09/21/24 10:02 Active CHEST 1 VIEW (PORTABLE) Stat Exams 09/21/24 11:37 Completed KNEE (1 OR 2 VIEW) Stat Exams 09/21/24 10:07 Completed VENOUS UNILAT/LIMITED EXTREMIT [US] Stat Exams 09/21/24 10:08 Completed CBC W DIFF Stat Lab 09/21/24 10:18 Completed CMP Stat Lab 09/21/24 10:18 Completed D-DIMER QUANTITATIVE Stat Lab 09/21/24 10:17 Completed TROPONIN Q4H Lab 09/21/24 10:18 Completed TROPONIN Q4H Lab 09/21/24 12:40 Completed TROPONIN Q4H Lab 09/21/24 18:00 Ordered UA W/RFX UR CULTURE Stat Lab 09/21/24 10:15 Completed Transfer Order Routine Transfer 09/21/24 Ordered Lab/Rad Data: Laboratory Result Diagrams 09/21/24 10:18 09/21/24 10:18 Laboratory Results 09/21/24 09/21/24 09/21/24 Range/Units 12:40 10:18 10:18 WBC (3.98-10.04) x10^3/uL RBC (3.93-5.22) x10^6/uL Hgb (11.2-15.7) g/dL Hct (34.1-44.9) % MCV (79.4-94.8) fL MCH (25.6-32.2) pg MCHC (32.2-35.5) g/dL RDW (11.7-14.4) % Plt Count (182-369) x10^3/uL MPV (9.4-12.3) fL Gran % (34.0-71.1) % Immature Gran % (Auto) (0.001-0.429) % Nucleat RBC Rel Count (0.00-0.2) % Eos # (Auto) (0.04-0.36) x10^3/uL Immature Gran # (Auto) (0.001-0.031) x10^3u/L Absolute Lymphs (auto) (1.18-3.74) x10^3/uL Absolute Monos (auto) (0.24-0.86) x10^3/uL Absolute Nucleated RBC (0.00-0.012) x10^3u/L Lymphocytes % (19.3-51.7) % Monocytes % (4.7-12.5) % Eosinophils % (0.7-5.8) % Basophils % (0.1-1.2) % Absolute Granulocytes (1.56-6.13) x10^3/uL Basophils # (0.01-0.08) x10^3/uL D-Dimer (0.0-0.50) mg/L Sodium 141 (135-145) mmol/L Potassium 4.5 (3.5-5.1) mmol/L Chloride 106 (98-107) mmol/L Carbon Dioxide 22 (22-30) mmol/L Anion Gap 17.7 H (5-15) MEQ/L BUN 19 H (7-17) mg/dL Creatinine 0.64 (0.52-1.04) mg/dL Estimated GFR 88.2 ML/MIN Glucose 114 H (74-106) mg/dL Calcium 9.3 (8.4-10.2) mg/dL Total Bilirubin 0.60 (0.2-1.3) mg/dL AST 29 (14-36) U/L ALT 18 (0-35) U/L Alkaline Phosphatase 102 (38-126) U/L Troponin I < 0.012 < 0.012 (0.000-0.033) ng/mL Serum Total Protein 7.6 (6.3-8.2) g/dL Albumin 4.5 (3.5-5.0) g/dL Urine Color (Yellow) Urine Appearance (Clear) Urine pH (4.6-8.0) Ur Specific [place] (1.005-1.030) Urine Protein (Negative) Urine Glucose (UA) (Negative) mg/dL Urine Ketones (Negative) Urine Blood (Negative) Urine Nitrite (Negative) Urine Bilirubin (Negative) Urine Urobilinogen (0.2) mg/dL Ur Leukocyte Esterase (Negative) U Hyaline Cast (Auto) (0-2) /LPF Urine Microscopic RBC (0-5) /HPF Urine Microscopic WBC (0-5) /HPF Ur Epithelial Cells (None Seen) /HPF Urine Bacteria (None Seen) /HPF Urine Culture Reflexed (NO) 09/21/24 09/21/24 09/21/24 Range/Units 10:18 10:17 10:15 WBC 6.8 (3.98-10.04) x10^3/uL RBC 5.31 H (3.93-5.22) x10^6/uL Hgb 14.4 (11.2-15.7) g/dL Hct 45.0 H (34.1-44.9) % MCV 84.7 (79.4-94.8) fL MCH 27.1 (25.6-32.2) pg MCHC 32.0 L (32.2-35.5) g/dL RDW 13.9 (11.7-14.4) % Plt Count 264 (182-369) x10^3/uL MPV 9.0 L (9.4-12.3) fL Gran % 54.7 (34.0-71.1) % Immature Gran % (Auto) 0.3 (0.001-0.429) % Nucleat RBC Rel Count 0.0 (0.00-0.2) % Eos # (Auto) 0.16 (0.04-0.36) x10^3/uL Immature Gran # (Auto) 0.02 (0.001-0.031) x10^3u/L Absolute Lymphs (auto) 2.47 (1.18-3.74) x10^3/uL Absolute Monos (auto) 0.38 (0.24-0.86) x10^3/uL Absolute Nucleated RBC 0.00 (0.00-0.012) x10^3u/L Lymphocytes % 36.1 (19.3-51.7) % Monocytes % 5.6 (4.7-12.5) % Eosinophils % 2.3 (0.7-5.8) % Basophils % 1.0 (0.1-1.2) % Absolute Granulocytes 3.74 (1.56-6.13) x10^3/uL Basophils # 0.07 (0.01-0.08) x10^3/uL D-Dimer 0.58 H (0.0-0.50) mg/L Sodium (135-145) mmol/L Potassium (3.5-5.1) mmol/L Chloride (98-107) mmol/L Carbon Dioxide (22-30) mmol/L Anion Gap (5-15) MEQ/L BUN (7-17) mg/dL Creatinine (0.52-1.04) mg/dL Estimated GFR ML/MIN Glucose (74-106) mg/dL Calcium (8.4-10.2) mg/dL Total Bilirubin (0.2-1.3) mg/dL AST (14-36) U/L ALT (0-35) U/L Alkaline Phosphatase (38-126) U/L Troponin I (0.000-0.033) ng/mL Serum Total Protein (6.3-8.2) g/dL Albumin (3.5-5.0) g/dL Urine Color Yellow (Yellow) Urine Appearance Clear (Clear) Urine pH 7.5 (4.6-8.0) Ur Specific [place] <=1.005 (1.005-1.030) Urine Protein Negative (Negative) Urine Glucose (UA) Negative (Negative) mg/dL Urine Ketones Negative (Negative) Urine Blood Negative (Negative) Urine Nitrite Negative (Negative) Urine Bilirubin Negative (Negative) Urine Urobilinogen 0.2 (0.2) mg/dL Ur Leukocyte Esterase Trace A (Negative) U Hyaline Cast (Auto) NONE SEEN (0-2) /LPF Urine Microscopic RBC 0-2 (0-5) /HPF Urine Microscopic WBC 0-2 (0-5) /HPF Ur Epithelial Cells None Seen (None Seen) /HPF Urine Bacteria None Seen (None Seen) /HPF Urine Culture Reflexed NO (NO) - Progress Progress: improved Progress Note: Patient is an 84-year-old female presents to our ED for evaluation of right leg pain. Upon arrival to our ED patient added that she was experiencing some chest pain as well. Initial vitals reveals hypertension. Patient adds that she does not follow-up with her primary care doctor and has not done so in many years. Physical exam reveals positive Homans' sign right lower extremity. Right lower extremity ultrasound negative for DVT. EKG sinus rhythm. Troponin negative. Right knee x-ray shows chronic degenerative changes. Chest x-ray shows right base infiltrate versus atelectasis. Patient likely has atelectasis that she has no signs of pneumonia. The patient's symptoms are the left side of the chest. In light of patient's chest pain and lack of primary care follow-up patient will be admitted for further evaluation and treatment. Plan of care discussed with patient. She agrees to admission to [facility] for further evaluation and treatment. Case discussed with hospitalist Dr. Jones at 1 PM who accepts patient to her service. She advised 5 mg of amlodipine p.o. for blood pressure. Portions of this note were created with voice recognition technology. There may be grammatical, spelling, punctuation or sound alike errors Complexity of problem addressed is moderate acute complicated. No critical care time. Complexity of data reviewed and analyzed is extensive. Test ordered test reviewed results analyzed and correlated clinically with history and physical exam. Management discussed with hospitalist who accepts admission to observation. Risk of complication and or risk of morbidity/mortality of patient management is high. Patient requires hospitalization for further evaluation and treatment. Vital stable. Time spent admit patient is approximately 15 minutes. Plan of care established for shared decision making. No social determinants of health present to impede follow-up. Portions of this note were created with voice recognition technology. There may be grammatical, spelling, punctuation or sound alike errors 09/21/24 13:16 Discussed with : Other Will see patient in: hospital (observation) Counseled pt/family regarding: lab results, diagnosis, rad results - Departure Departure Disposition: Observation Clinical Impression: Leg pain, Hypertension, Chest pain, ACS (acute coronary syndrome) Condition: Stable Critical Care Time: No Referrals: AZAM ROBERT MD [Primary Care Provider, INTERNAL MEDICINE] - Follow up/PCP as directed
[2024-09-21 10:23] LABS: Absolute Neutrophil Ct (ANC) 3.74 x10^3/uL (1.56-6.13); Basophil (Absolute #) 0.07 x10^3/uL (0.01-0.08); Eosinophil % 2.3 % (0.7-5.8); Eosinophil (Absolute #) 0.16 x10^3/uL (0.04-0.36); Hemoglobin 14.4 g/dL (11.2-15.7); IMMATURE GRAN # 0.02 x10^3u/L (0.001-0.031); IMMATURE GRAN % 0.3 % (0.001-0.429); Lymphocyte (Absolute #) 2.47 x10^3/uL (1.18-3.74); Lymphocytes % 36.1 % (19.3-51.7); Mean Cell Volume 84.7 fL (79.4-94.8); Mean Corpuscular Hemoglobin 27.1 pg (25.6-32.2); Monocyte (Absolute #) 0.38 x10^3/uL (0.24-0.86); Monocytes % 5.6 % (4.7-12.5); Neutrophil % 54.7 % (34.0-71.1); Platelet Count 264 x10^3/uL (182-369); Red Blood Count 5.31 x10^6/uL (3.93-5.22); Red Cell Distribution Width 13.9 % (11.7-14.4); White Blood Count 6.8 x10^3/uL (3.98-10.04)
[2024-09-21 10:33] LABS: Appearance Clear (Clear); Bacteria None Seen /HPF (None Seen); Bilirubin Negative (Negative); Blood Negative (Negative); Epithelial Cells None Seen /HPF (None Seen); Glucose, Urine Negative (Negative); Hyaline Casts NONE SEEN /LPF (0-2); Ketones Negative (Negative); Leukocyte Esterase Trace (Negative); Nitrite Negative (Negative); Ph 7.5 (4.6-8.0); Protein,Urine Dip Negative (Negative); RBC 0-2 /HPF (0-5); Specific Gravity <=1.005 (1.005-1.030); Urobilinogen 0.2 mg/dL (0.2); WBC 0-2 /HPF (0-5)
[2024-09-21 10:44] LABS: ALBUMIN 4.5 g/dL (3.5-5.0); ANION GAP 17.7 MEQ/L (5-15); BILIRUBIN,TOTAL 0.6 mg/dL (0.2-1.3); Calcium 9.3 mg/dL (8.4-10.2); Creatinine 1 0.64 mg/dL (0.52-1.04); EST GLOMERULAR FILTRATION RATE 88.2 ML/MIN; Potassium 4.5 mmol/L (3.5-5.1); Total Protein 7.6 g/dL (6.3-8.2)
--- NOTE | 2024-09-21 11:02 | XRAY ---
Indication: Pain. Comparison: None AP/crosstable lateral right knee demonstrates osteopenia, minimal/mild tricompartmental degenerative changes greatest lateral compartment, and small posterior fabella. No other bony, articular, or soft tissue abnormalities.
--- NOTE | 2024-09-21 11:04 | XRAY ---
Indication: Calf pain. Two-dimensional sonogram and color Doppler imaging major venous vessels right leg performed. Comparison: None No thrombus seen in the examined deep venous vessels right leg including greater saphenous vein. Veins demonstrate normal compressibility. Venous waveforms are normal with and without augmentation. Impression: Right leg negative for DVT.
--- NOTE | 2024-09-21 12:29 | XRAY ---
Indication: Pain. Comparison: None Portable chest demonstrates subtle asymmetric right base infiltrate/atelectasis. Remaining heart and lungs unremarkable. Bony thorax intact with osteopenia and mild degenerative changes.
[2024-09-21] MEDS ORDERED: BABY ASPIRIN 81 MG CHEW ONE (13:31)
[2024-09-21] MEDS ORDERED: NORVASC 5 MG ONE (13:31)
[2024-09-21] MEDS ORDERED: NITRO-BID 2% UD PACKETS ONE (13:31)
[2024-09-21] MEDS: NORVASC 5 MG PO ONE (13:32)
[2024-09-21] MEDS: BABY ASPIRIN 81 MG CHEW PO ONE (13:32)
[2024-09-21] MEDS: NITRO-BID 2% UD PACKETS TOP ONE (13:33)
--- NOTE | 2024-09-21 14:01 | PCM.HP ---
<ERNA SALINAS - Last Filed: 09/21/24 14:17> History of Present Illness - Chief Complaint Chief Complaint: Chest pain, ACS Date: 09/21/24 History of Present Illness: is a 84 year old female with a pmhx of who presented to ED 09/21/24 with no pmhx and with no consistent primary care follow-up who presented to ED 09/21/24 for evaluation of right lower extremity pain and newly reported chest discomfort. She reports a two-day history of persistent pain in the right leg, extending from the distal thigh to the foot. She denies trauma, fevers, swelling, redness, or recent immobilization. Although she has a baseline history of chronic right knee pain, she describes this episode as more severe, more diffuse, and qualitatively different. She also endorsed at three day history of intermittent chest discomfort localized to the left chest, not associated with shortness of breath, nausea, vomiting, or diaphoresis. She describes the pain as intermittent and sharp in characteristic with pain lasting under 3 mins per episode. She reports approximately 2-3 episodes today. Movement aggravates pain and resting provides relief. She has not experienced similar pain in the past nor does she report any previous heart history. On arrival to ED, the patient was found to be hypertensive with a systolic blood pressure of 218 mmHg. EKG revealed sinus rhythm at a rate of 67 bpm with normal axis, intervals, and QRS complex. A serum troponin x1 was negative. D-dimer was elevated, prompting further evaluation for thromboembolic disease. A lower extremity venous duplex ultrasound was performed and was negative for deep vein thrombosis. Chest X-ray demonstrated a right basilar opacity, read as likely atelectasis versus early infiltrate, without consolidation or pleural effusion. Right knee radiographs showed chronic degenerative changes consistent with osteoarthritis. Laboratory studies were otherwise unremarkable, with no leukocytosis and preserved renal function. Due to the combination of uncontrolled hypertension, atypical chest discomfort, elevated D-dimer, and leg pain without a clear etiology, the patient was admitted for further inpatient evaluation and management. - Review of Systems Constitutional: No Symptoms Eyes: No Symptoms Ears, Nose, & Throat: No Symptoms Respiratory: No Symptoms Cardiac: Chest Pain, Edema (left knee) Abdominal/Gastrointestinal: No Symptoms Genitourinary Symptoms: No Symptoms Musculoskeletal: Joint Pain (left knee /right leg) Skin: No Symptoms Neurological: No Symptoms Psychological: No Symptoms Endocrine: No Symptoms Hematologic/Lymphatic: No Symptoms Immunological/Allergic: No Symptoms Medications & Allergies Home Medications: Home Medication List No Reportable Medications [No Reported Medications] 09/09/23 [History Confirmed 09/21/24] Allergies/Adverse Reactions: Allergies Allergy/AdvReac Type Severity Reaction Status Date / Time No Known Drug Allergies Allergy Verified 09/21/24 13:56 - Past Medical History Past Medical History: Yes Neurological History: No Pertinent History ENT History: No Pertinent History Cardiac History: No Pertinent History Respiratory History: No Pertinent History Endocrine Medical History: No Pertinent History Musculoskelatal History: No Pertinent History GI Medical History: Hernia History: No Pertinent History Pyscho-Social History: No Pertinent History Reproductive Disorders: No Pertinent History Comment: hiatal hernia - Past Surgical History Past Surgical History: Yes Neuro Surgical History: No Pertinent History Cardiac History: Angioplasty Respiratory Surgery: No Pertinent History GI Surgical History: Appendectomy Genitourinary Surgical Hx: No Pertinent History Musculskeletal Surgical Hx: No Pertinent History Female Surgical History: Hysterectomy Other Surgical History: "lens in eye", colonoscopy,breast bx Significant Family History: no pertinent family hx - Social History Smoking Status: Never smoker Exposure to second hand smoke: No Alcohol: None Drug Use: none - Social Determinants of Health Will the patient participate in the screening: Declined to provide - Physical Exam Vital Signs: Vital Signs - 24 hr Temp Pulse Resp BP BP Pulse Ox 09/21/24 13:23 95 09/21/24 13:01 87 16 174/108 97 09/21/24 12:30 16 181/72 95 09/21/24 12:00 74 16 184/84 96 09/21/24 11:30 135/101 95 09/21/24 11:06 70 16 178/85 96 09/21/24 10:30 188/91 09/21/24 10:29 97 09/21/24 10:00 60 16 182/109 97 09/21/24 09:57 81 16 194/85 95 09/21/24 09:56 16 194/85 94 L 09/21/24 09:54 99.0 F 98 H 18 218/98 96 General Appearance: no apparent distress Neurologic Exam: alert, oriented x 3, cooperative Eye Exam: PERRL/EOMI Ears, Nose, Throat Exam: normal ENT inspection Neck Exam: normal inspection Respiratory Exam: normal breath sounds, lungs clear Cardiovascular Exam: regular rate/rhythm, normal heart sounds Gastrointestinal/Abdomen Exam: soft, normal bowel sounds Pelvic Exam: not done Rectal Exam: deferred Back Exam: normal inspection Extremity Exam: joint swelling (left knee) Results - Labs Lab/Micro Results: Lab Results-Last 24 Hours 09/21/24 09/21/24 09/21/24 Range/Units 10:15 10:17 10:18 WBC 6.8 (3.98-10.04) x10^3/uL RBC 5.31 H (3.93-5.22) x10^6/uL Hgb 14.4 (11.2-15.7) g/dL Hct 45.0 H (34.1-44.9) % MCV 84.7 (79.4-94.8) fL MCH 27.1 (25.6-32.2) pg MCHC 32.0 L (32.2-35.5) g/dL RDW 13.9 (11.7-14.4) % Plt Count 264 (182-369) x10^3/uL MPV 9.0 L (9.4-12.3) fL Gran % 54.7 (34.0-71.1) % Immature Gran % (Auto) 0.3 (0.001-0.429) % Nucleat RBC Rel Count 0.0 (0.00-0.2) % Eos # (Auto) 0.16 (0.04-0.36) x10^3/uL Immature Gran # (Auto) 0.02 (0.001-0.031) x10^3u/L Absolute Lymphs (auto) 2.47 (1.18-3.74) x10^3/uL Absolute Monos (auto) 0.38 (0.24-0.86) x10^3/uL Absolute Nucleated RBC 0.00 (0.00-0.012) x10^3u/L Lymphocytes % 36.1 (19.3-51.7) % Monocytes % 5.6 (4.7-12.5) % Eosinophils % 2.3 (0.7-5.8) % Basophils % 1.0 (0.1-1.2) % Absolute Granulocytes 3.74 (1.56-6.13) x10^3/uL Basophils # 0.07 (0.01-0.08) x10^3/uL D-Dimer 0.58 H (0.0-0.50) mg/L Sodium (135-145) mmol/L Potassium (3.5-5.1) mmol/L Chloride (98-107) mmol/L Carbon Dioxide (22-30) mmol/L Anion Gap (5-15) MEQ/L BUN (7-17) mg/dL Creatinine (0.52-1.04) mg/dL Estimated GFR ML/MIN Glucose (74-106) mg/dL Calcium (8.4-10.2) mg/dL Total Bilirubin (0.2-1.3) mg/dL AST (14-36) U/L ALT (0-35) U/L Alkaline Phosphatase (38-126) U/L Troponin I (0.000-0.033) ng/mL Serum Total Protein (6.3-8.2) g/dL Albumin (3.5-5.0) g/dL Urine Color Yellow (Yellow) Urine Appearance Clear (Clear) Urine pH 7.5 (4.6-8.0) Ur Specific Liberal <=1.005 (1.005-1.030) Urine Protein Negative (Negative) Urine Glucose (UA) Negative (Negative) mg/dL Urine Ketones Negative (Negative) Urine Blood Negative (Negative) Urine Nitrite Negative (Negative) Urine Bilirubin Negative (Negative) Urine Urobilinogen 0.2 (0.2) mg/dL Ur Leukocyte Esterase Trace A (Negative) U Hyaline Cast (Auto) NONE SEEN (0-2) /LPF Urine Microscopic RBC 0-2 (0-5) /HPF Urine Microscopic WBC 0-2 (0-5) /HPF Ur Epithelial Cells None Seen (None Seen) /HPF Urine Bacteria None Seen (None Seen) /HPF Urine Culture Reflexed NO (NO) 09/21/24 09/21/24 09/21/24 Range/Units 10:18 10:18 12:40 WBC (3.98-10.04) x10^3/uL RBC (3.93-5.22) x10^6/uL Hgb (11.2-15.7) g/dL Hct (34.1-44.9) % MCV (79.4-94.8) fL MCH (25.6-32.2) pg MCHC (32.2-35.5) g/dL RDW (11.7-14.4) % Plt Count (182-369) x10^3/uL MPV (9.4-12.3) fL Gran % (34.0-71.1) % Immature Gran % (Auto) (0.001-0.429) % Nucleat RBC Rel Count (0.00-0.2) % Eos # (Auto) (0.04-0.36) x10^3/uL Immature Gran # (Auto) (0.001-0.031) x10^3u/L Absolute Lymphs (auto) (1.18-3.74) x10^3/uL Absolute Monos (auto) (0.24-0.86) x10^3/uL Absolute Nucleated RBC (0.00-0.012) x10^3u/L Lymphocytes % (19.3-51.7) % Monocytes % (4.7-12.5) % Eosinophils % (0.7-5.8) % Basophils % (0.1-1.2) % Absolute Granulocytes (1.56-6.13) x10^3/uL Basophils # (0.01-0.08) x10^3/uL D-Dimer (0.0-0.50) mg/L Sodium 141 (135-145) mmol/L Potassium 4.5 (3.5-5.1) mmol/L Chloride 106 (98-107) mmol/L Carbon Dioxide 22 (22-30) mmol/L Anion Gap 17.7 H (5-15) MEQ/L BUN 19 H (7-17) mg/dL Creatinine 0.64 (0.52-1.04) mg/dL Estimated GFR 88.2 ML/MIN Glucose 114 H (74-106) mg/dL Calcium 9.3 (8.4-10.2) mg/dL Total Bilirubin 0.60 (0.2-1.3) mg/dL AST 29 (14-36) U/L ALT 18 (0-35) U/L Alkaline Phosphatase 102 (38-126) U/L Troponin I < 0.012 < 0.012 (0.000-0.033) ng/mL Serum Total Protein 7.6 (6.3-8.2) g/dL Albumin 4.5 (3.5-5.0) g/dL Urine Color (Yellow) Urine Appearance (Clear) Urine pH (4.6-8.0) Ur Specific Liberal (1.005-1.030) Urine Protein (Negative) Urine Glucose (UA) (Negative) mg/dL Urine Ketones (Negative) Urine Blood (Negative) Urine Nitrite (Negative) Urine Bilirubin (Negative) Urine Urobilinogen (0.2) mg/dL Ur Leukocyte Esterase (Negative) U Hyaline Cast (Auto) (0-2) /LPF Urine Microscopic RBC (0-5) /HPF Urine Microscopic WBC (0-5) /HPF Ur Epithelial Cells (None Seen) /HPF Urine Bacteria (None Seen) /HPF Urine Culture Reflexed (NO) - Radiology Impressions Radiology Exams & Impressions: Radiology Procedures Category Date Time Status CHEST 1 VIEW (PORTABLE) Stat Exams 09/21/24 11:37 Completed KNEE (1 OR 2 VIEW) Stat Exams 09/21/24 10:07 Completed VENOUS UNILAT/LIMITED EXTREMIT [US] Stat Exams 09/21/24 10:08 Completed Assessment/Plan (1) Chest pain Current Visit: Yes Status: Acute Assessment & Plan: -Troponin negative, EKG reassuring. Pain is non-exertional and intermittent. -Elevated D-dimer concerning for occult thromboembolic disease despite negative lower extremity Doppler -CTA chest to evaluate for pulmonary embolism -Continue telemetry monitoring. Trend serial troponins and repeat EKG Code(s): R07.9 - CHEST PAIN, UNSPECIFIED (2) Hypertensive urgency Current Visit: Yes Status: Acute Assessment & Plan: -No end-organ dysfunction noted on exam or labs -Initiate oral antihypertensives amlodipine 5mg- titrate as tolerated -Monitor blood pressure every 4 hours. Gradual reduction of BP over 2448 hours -Consider evaluation for secondary causes of hypertension if persistent Code(s): I16.0 - HYPERTENSIVE URGENCY (3) Pain of right lower extremity Current Visit: Yes Status: Acute Assessment & Plan: -Negative Doppler and absence of swelling or systemic signs suggest musculoskeletal etiology, possibly exacerbation of baseline osteoarthritis -Pain control with acetaminophen/[place] -Encourage ambulation. Monitor for evolving signs that warrant repeat imaging Code(s): M79.604 - PAIN IN RIGHT LEG (4) Opacity noted on imaging study Current Visit: Yes Status: Acute Assessment & Plan: -No fever, leukocytosis, or respiratory complaints; likely atelectasis -Incentive spirometry and early ambulation -Monitor vitals and WBC. Hold antibiotics unless signs of infection emerge VTE: Lovenox Dispo: 1-2 days Code Status: Full code Diet: Regular Code(s): R93.89 - ABNORMAL FINDINGS ON DX IMAGING OF OTH BODY STRUCTURES Telemedicine Encounter - Telemedicine Encounter Telemedicine Encounter: "The entirety of this encounter was performed via Telemedicine" This visit was performed using real-time audio and video connection between my location and thepatients locationwith the assistance of a surrogateat the patients location. Written or verbal consent was obtained from the patient/guardian to perform this visit using[employer] technology. Any patient questions regarding the telemedicine interaction were answered. <LISSETTE CRUZ - Last Filed: 09/21/24 18:44> History of Present Illness - Chief Complaint History of Present Illness: is a 84 year old female. - Physical Exam Vital Signs: Vital Signs - 24 hr Temp Pulse Resp BP BP Pulse Ox 09/21/24 16:52 98.4 F 85 22 187/84 92 L 09/21/24 14:06 99.1 F 92 H 16 193/91 95 09/21/24 13:53 99.1 F 92 H 22 193/91 93 L 09/21/24 13:23 95 09/21/24 13:01 87 16 174/108 97 09/21/24 12:30 16 181/72 95 09/21/24 12:00 74 16 184/84 96 09/21/24 11:30 135/101 95 09/21/24 11:06 70 16 178/85 96 09/21/24 10:30 188/91 09/21/24 10:29 97 09/21/24 10:00 60 16 182/109 97 09/21/24 09:57 81 16 194/85 95 09/21/24 09:56 16 194/85 94 L 09/21/24 09:54 99.0 F 98 H 18 218/98 96 Results - Labs Lab/Micro Results: Lab Results-Last 24 Hours 09/21/24 09/21/24 09/21/24 Range/Units 10:15 10:17 10:18 WBC 6.8 (3.98-10.04) x10^3/uL RBC 5.31 H (3.93-5.22) x10^6/uL Hgb 14.4 (11.2-15.7) g/dL Hct 45.0 H (34.1-44.9) % MCV 84.7 (79.4-94.8) fL MCH 27.1 (25.6-32.2) pg MCHC 32.0 L (32.2-35.5) g/dL RDW 13.9 (11.7-14.4) % Plt Count 264 (182-369) x10^3/uL MPV 9.0 L (9.4-12.3) fL Gran % 54.7 (34.0-71.1) % Immature Gran % (Auto) 0.3 (0.001-0.429) % Nucleat RBC Rel Count 0.0 (0.00-0.2) % Eos # (Auto) 0.16 (0.04-0.36) x10^3/uL Immature Gran # (Auto) 0.02 (0.001-0.031) x10^3u/L Absolute Lymphs (auto) 2.47 (1.18-3.74) x10^3/uL Absolute Monos (auto) 0.38 (0.24-0.86) x10^3/uL Absolute Nucleated RBC 0.00 (0.00-0.012) x10^3u/L Lymphocytes % 36.1 (19.3-51.7) % Monocytes % 5.6 (4.7-12.5) % Eosinophils % 2.3 (0.7-5.8) % Basophils % 1.0 (0.1-1.2) % Absolute Granulocytes 3.74 (1.56-6.13) x10^3/uL Basophils # 0.07 (0.01-0.08) x10^3/uL D-Dimer 0.58 H (0.0-0.50) mg/L Sodium (135-145) mmol/L Potassium (3.5-5.1) mmol/L Chloride (98-107) mmol/L Carbon Dioxide (22-30) mmol/L Anion Gap (5-15) MEQ/L BUN (7-17) mg/dL Creatinine (0.52-1.04) mg/dL Estimated GFR ML/MIN Glucose (74-106) mg/dL Calcium (8.4-10.2) mg/dL Total Bilirubin (0.2-1.3) mg/dL AST (14-36) U/L ALT (0-35) U/L Alkaline Phosphatase (38-126) U/L Troponin I (0.000-0.033) ng/mL Serum Total Protein (6.3-8.2) g/dL Albumin (3.5-5.0) g/dL Urine Color Yellow (Yellow) Urine Appearance Clear (Clear) Urine pH 7.5 (4.6-8.0) Ur Specific Liberal <=1.005 (1.005-1.030) Urine Protein Negative (Negative) Urine Glucose (UA) Negative (Negative) mg/dL Urine Ketones Negative (Negative) Urine Blood Negative (Negative) Urine Nitrite Negative (Negative) Urine Bilirubin Negative (Negative) Urine Urobilinogen 0.2 (0.2) mg/dL Ur Leukocyte Esterase Trace A (Negative) U Hyaline Cast (Auto) NONE SEEN (0-2) /LPF Urine Microscopic RBC 0-2 (0-5) /HPF Urine Microscopic WBC 0-2 (0-5) /HPF Ur Epithelial Cells None Seen (None Seen) /HPF Urine Bacteria None Seen (None Seen) /HPF Urine Culture Reflexed NO (NO) 09/21/24 09/21/24 09/21/24 Range/Units 10:18 10:18 12:40 WBC (3.98-10.04) x10^3/uL RBC (3.93-5.22) x10^6/uL Hgb (11.2-15.7) g/dL Hct (34.1-44.9) % MCV (79.4-94.8) fL MCH (25.6-32.2) pg MCHC (32.2-35.5) g/dL RDW (11.7-14.4) % Plt Count (182-369) x10^3/uL MPV (9.4-12.3) fL Gran % (34.0-71.1) % Immature Gran % (Auto) (0.001-0.429) % Nucleat RBC Rel Count (0.00-0.2) % Eos # (Auto) (0.04-0.36) x10^3/uL Immature Gran # (Auto) (0.001-0.031) x10^3u/L Absolute Lymphs (auto) (1.18-3.74) x10^3/uL Absolute Monos (auto) (0.24-0.86) x10^3/uL Absolute Nucleated RBC (0.00-0.012) x10^3u/L Lymphocytes % (19.3-51.7) % Monocytes % (4.7-12.5) % Eosinophils % (0.7-5.8) % Basophils % (0.1-1.2) % Absolute Granulocytes (1.56-6.13) x10^3/uL Basophils # (0.01-0.08) x10^3/uL D-Dimer (0.0-0.50) mg/L Sodium 141 (135-145) mmol/L Potassium 4.5 (3.5-5.1) mmol/L Chloride 106 (98-107) mmol/L Carbon Dioxide 22 (22-30) mmol/L Anion Gap 17.7 H (5-15) MEQ/L BUN 19 H (7-17) mg/dL Creatinine 0.64 (0.52-1.04) mg/dL Estimated GFR 88.2 ML/MIN Glucose 114 H (74-106) mg/dL Calcium 9.3 (8.4-10.2) mg/dL Total Bilirubin 0.60 (0.2-1.3) mg/dL AST 29 (14-36) U/L ALT 18 (0-35) U/L Alkaline Phosphatase 102 (38-126) U/L Troponin I < 0.012 < 0.012 (0.000-0.033) ng/mL Serum Total Protein 7.6 (6.3-8.2) g/dL Albumin 4.5 (3.5-5.0) g/dL Urine Color (Yellow) Urine Appearance (Clear) Urine pH (4.6-8.0) Ur Specific Liberal (1.005-1.030) Urine Protein (Negative) Urine Glucose (UA) (Negative) mg/dL Urine Ketones (Negative) Urine Blood (Negative) Urine Nitrite (Negative) Urine Bilirubin (Negative) Urine Urobilinogen (0.2) mg/dL Ur Leukocyte Esterase (Negative) U Hyaline Cast (Auto) (0-2) /LPF Urine Microscopic RBC (0-5) /HPF Urine Microscopic WBC (0-5) /HPF Ur Epithelial Cells (None Seen) /HPF Urine Bacteria (None Seen) /HPF Urine Culture Reflexed (NO) 09/21/24 Range/Units 17:57 WBC (3.98-10.04) x10^3/uL RBC (3.93-5.22) x10^6/uL Hgb (11.2-15.7) g/dL Hct (34.1-44.9) % MCV (79.4-94.8) fL MCH (25.6-32.2) pg MCHC (32.2-35.5) g/dL RDW (11.7-14.4) % Plt Count (182-369) x10^3/uL MPV (9.4-12.3) fL Gran % (34.0-71.1) % Immature Gran % (Auto) (0.001-0.429) % Nucleat RBC Rel Count (0.00-0.2) % Eos # (Auto) (0.04-0.36) x10^3/uL Immature Gran # (Auto) (0.001-0.031) x10^3u/L Absolute Lymphs (auto) (1.18-3.74) x10^3/uL Absolute Monos (auto) (0.24-0.86) x10^3/uL Absolute Nucleated RBC (0.00-0.012) x10^3u/L Lymphocytes % (19.3-51.7) % Monocytes % (4.7-12.5) % Eosinophils % (0.7-5.8) % Basophils % (0.1-1.2) % Absolute Granulocytes (1.56-6.13) x10^3/uL Basophils # (0.01-0.08) x10^3/uL D-Dimer (0.0-0.50) mg/L Sodium (135-145) mmol/L Potassium (3.5-5.1) mmol/L Chloride (98-107) mmol/L Carbon Dioxide (22-30) mmol/L Anion Gap (5-15) MEQ/L BUN (7-17) mg/dL Creatinine (0.52-1.04) mg/dL Estimated GFR ML/MIN Glucose (74-106) mg/dL Calcium (8.4-10.2) mg/dL Total Bilirubin (0.2-1.3) mg/dL AST (14-36) U/L ALT (0-35) U/L Alkaline Phosphatase (38-126) U/L Troponin I < 0.012 (0.000-0.033) ng/mL Serum Total Protein (6.3-8.2) g/dL Albumin (3.5-5.0) g/dL Urine Color (Yellow) Urine Appearance (Clear) Urine pH (4.6-8.0) Ur Specific Liberal (1.005-1.030) Urine Protein (Negative) Urine Glucose (UA) (Negative) mg/dL Urine Ketones (Negative) Urine Blood (Negative) Urine Nitrite (Negative) Urine Bilirubin (Negative) Urine Urobilinogen (0.2) mg/dL Ur Leukocyte Esterase (Negative) U Hyaline Cast (Auto) (0-2) /LPF Urine Microscopic RBC (0-5) /HPF Urine Microscopic WBC (0-5) /HPF Ur Epithelial Cells (None Seen) /HPF Urine Bacteria (None Seen) /HPF Urine Culture Reflexed (NO) - Radiology Impressions Radiology Exams & Impressions: Radiology Procedures Category Date Time Status CHEST 1 VIEW (PORTABLE) Stat Exams 09/21/24 11:37 Completed CHEST WITH CONTRAST [CT] Stat Exams 09/21/24 14:25 Completed KNEE (1 OR 2 VIEW) Stat Exams 09/21/24 10:07 Completed VENOUS UNILAT/LIMITED EXTREMIT [US] Stat Exams 09/21/24 10:08 Completed - Other Procedures and Tests Respiratory Therapy 09/21/24 14:25 EKG REPEAT IN AM Telemedicine Encounter - Telemedicine Encounter Telemedicine Encounter: "The entirety of this encounter was performed via Telemedicine" This visit was performed using real-time audio and video connection between my location and thepatients locationwith the assistance of a surrogateat the patients location. Written or verbal consent was obtained from the patient/guardian to perform this visit usings[facility]telemedicine technology. Any patient questions regarding the telemedicine interaction were answered. EDWARD Encounter - EDWARD Encounter Attestation EDWARD Encounter Attestation: "SHANIKA Thompson andjimiiscussed pertinent aspects of their care with Erna Rodriguez agree with the history, physical exam (any modifications based on my personal exam will be noted below), assessment, and plan as outlined in original note. Please see immediately below for my summary of findings and additional assessment and plan along with any meaningful corrections/explanations to the Subjective/Objective portions of the EDWARD note will be noted." My portion of the encounter took place via telemedicine. -Patient presenting with chest pain likely due to elevated blood pressures and right knee pain likely due to osteoarthritis. Does not follow with a doctor regularly and takes no medications. Will trend cardiac enzymes and control blood pressure. At the time of my interview patient's chest pain had resolved. Topical voltaren added for knee pain.
[2024-09-21] MEDS ORDERED: Docusate Sodium 100 MG PO PRN (14:25)
[2024-09-21] MEDS ORDERED: TYLENOL 325 MG PO PRN (14:25)
[2024-09-21] MEDS ORDERED: Zofran 4 MG/2 ML VIAL IV PRN (14:25)
[2024-09-21] MEDS: ENOXAPARIN SODIUM SQ SCH (15:04)
--- NOTE | 2024-09-21 16:59 | XRAY ---
Indication: Chest pain. Elevated d-dimer. Multiple contiguous axial images obtained through the chest using 80 cc Isovue 370 contrast and PE protocol. Comparison: None Good opacification pulmonary arteries to include lobar and segmental branches. No pulmonary embolus. Heart not enlarged. Aorta is normal in course and caliber. No pathologic mediastinal/hilar lymphadenopathy. Moderate-sized hiatal hernia with partial intrathoracic stomach. Lungs hyperinflated with 9 x 7 mm right lower lobe indeterminate well-circumscribed noncalcified nodule (image 26). Medial left upper lobe demonstrates 6 x 10 mm indeterminant noncalcified nodule with irregular margins (image 23). No infiltrate, consolidation, or effusion. Bony thorax intact with osteopenia and flowing osteophytes throughout the spine. Limited upper abdomen demonstrates mild diffuse fatty liver. Impression: 1. Negative pulmonary embolus. No acute cardiopulmonary abnormalities. 2. Small indeterminant left upper and right lower lobe calcified nodules. Findings too small for PET/CT. Outside comparison studies recommended if available. If not, consider follow-up per Fleischner guidelines 3. Chronic findings including hiatal hernia with intrathoracic stomach, chronic bony findings, and fatty liver.
[2024-09-21] MEDS ORDERED: DICLOFENAC SODIUM TP PRN (17:10)
[2024-09-22] MEDS: ULTRAM 50 MG PO PRN (02:17)
[2024-09-22 05:15] LABS: Absolute Neutrophil Ct (ANC) 5.75 x10^3/uL (1.56-6.13); BASOPHIL % 0.7 % (0.1-1.2); Basophil (Absolute #) 0.06 x10^3/uL (0.01-0.08); Eosinophil % 1.8 % (0.7-5.8); Eosinophil (Absolute #) 0.16 x10^3/uL (0.04-0.36); Hematocrit 40.3 % (34.1-44.9); IMMATURE GRAN # 0.03 x10^3u/L (0.001-0.031); IMMATURE GRAN % 0.3 % (0.001-0.429); Lymphocyte (Absolute #) 2.11 x10^3/uL (1.18-3.74); Lymphocytes % 24.4 % (19.3-51.7); Mean Corpuscular Hemoglobin 27.1 pg (25.6-32.2); Mean Corpuscular Hgb Concent. 32.3 g/dL (32.2-35.5); Monocyte (Absolute #) 0.54 x10^3/uL (0.24-0.86); Monocytes % 6.2 % (4.7-12.5); Neutrophil % 66.6 % (34.0-71.1); Platelet Count 246 x10^3/uL (182-369); White Blood Count 8.7 x10^3/uL (3.98-10.04)
--- NOTE | 2024-09-22 05:28 | PCM.NOTE ---
Date and Time: 09/22/24524 Subjective Assessment: is a 84 year old female with a pmhx of who presented to ED 09/21/24 with no pmhx and with no consistent primary care follow-up who presented to ED 09/21/24 for evaluation of right lower extremity pain and newly reported chest discomfort. She reports a two-day history of persistent pain in the right leg, extending from the distal thigh to the foot. She denies trauma, fevers, swelling, redness, or recent immobilization. Although she has a baseline history of chronic right knee pain, she describes this episode as more severe, more diffuse, and qualitatively different. She also endorsed at three day history of intermittent chest discomfort localized to the left chest, not associated with shortness of breath, nausea, vomiting, or diaphoresis. She describes the pain as intermittent and sharp in characteristic with pain lasting under 3 mins per episode. She reports approximately 2-3 episodes today. Movement aggravates pain and resting provides relief. She has not experienced similar pain in the past nor does she report any previous heart history. On arrival to ED, the patient was found to be hypertensive with a systolic blood pressure of 218 mmHg. EKG revealed sinus rhythm at a rate of 67 bpm with normal axis, intervals, and QRS complex. A serum troponin x1 was negative. D-dimer was elevated, prompting further evaluation for thromboembolic disease. A lower extremity venous duplex ultrasound was performed and was negative for deep vein thrombosis. Chest X-ray demonstrated a right basilar opacity, read as likely atelectasis versus early infiltrate, without consolidation or pleural effusion. Right knee radiographs showed chronic degenerative changes consistent with osteoarthritis. Laboratory studies were otherwise unremarkable, with no leukocytosis and preserved renal function. Due to the combination of uncontrolled hypertension, atypical chest discomfort, elevated D-dimer, and leg pain without a clear etiology, the patient was admitted for further inpatient evaluation and management. Objective Data Vital Signs: Vital Signs - 24 hr Temp Pulse Resp BP BP Pulse Ox 09/22/24 03:59 98.3 F 72 16 137/65 95 09/22/24 00:00 97.9 F 73 16 149/67 97 09/21/24 20:00 97.7 F 80 17 153/72 95 09/21/24 16:52 98.4 F 85 22 187/84 92 L 09/21/24 14:06 99.1 F 92 H 16 193/91 95 09/21/24 13:53 99.1 F 92 H 22 193/91 93 L 09/21/24 13:23 95 09/21/24 13:01 87 16 174/108 97 09/21/24 12:30 16 181/72 95 09/21/24 12:00 74 16 184/84 96 09/21/24 11:30 135/101 95 09/21/24 11:06 70 16 178/85 96 09/21/24 10:30 188/91 09/21/24 10:29 97 09/21/24 10:00 60 16 182/109 97 09/21/24 09:57 81 16 194/85 95 09/21/24 09:56 16 194/85 94 L 09/21/24 09:54 99.0 F 98 H 18 218/98 96 Pain Assessment - Last Documented Pain Intensity 2 Intake and Output: Intake & Output 09/19/24 09/20/24 09/21/24 09/22/24 11:59 11:59 11:59 11:59 Intake Total 480 Output Total 100 Balance 380 Weight 96 kg 93.4 kg Lab Results: Lab Results-Last 24 Hours 09/21/24 09/21/24 09/21/24 Range/Units 10:15 10:17 10:18 WBC 6.8 (3.98-10.04) x10^3/uL RBC 5.31 H (3.93-5.22) x10^6/uL Hgb 14.4 (11.2-15.7) g/dL Hct 45.0 H (34.1-44.9) % MCV 84.7 (79.4-94.8) fL MCH 27.1 (25.6-32.2) pg MCHC 32.0 L (32.2-35.5) g/dL RDW 13.9 (11.7-14.4) % Plt Count 264 (182-369) x10^3/uL MPV 9.0 L (9.4-12.3) fL Gran % 54.7 (34.0-71.1) % Immature Gran % (Auto) 0.3 (0.001-0.429) % Nucleat RBC Rel Count 0.0 (0.00-0.2) % Eos # (Auto) 0.16 (0.04-0.36) x10^3/uL Immature Gran # (Auto) 0.02 (0.001-0.031) x10^3u/L Absolute Lymphs (auto) 2.47 (1.18-3.74) x10^3/uL Absolute Monos (auto) 0.38 (0.24-0.86) x10^3/uL Absolute Nucleated RBC 0.00 (0.00-0.012) x10^3u/L Lymphocytes % 36.1 (19.3-51.7) % Monocytes % 5.6 (4.7-12.5) % Eosinophils % 2.3 (0.7-5.8) % Basophils % 1.0 (0.1-1.2) % Absolute Granulocytes 3.74 (1.56-6.13) x10^3/uL Basophils # 0.07 (0.01-0.08) x10^3/uL D-Dimer 0.58 H (0.0-0.50) mg/L Sodium (135-145) mmol/L Potassium (3.5-5.1) mmol/L Chloride (98-107) mmol/L Carbon Dioxide (22-30) mmol/L Anion Gap (5-15) MEQ/L BUN (7-17) mg/dL Creatinine (0.52-1.04) mg/dL Estimated GFR ML/MIN Glucose (74-106) mg/dL Calcium (8.4-10.2) mg/dL Total Bilirubin (0.2-1.3) mg/dL AST (14-36) U/L ALT (0-35) U/L Alkaline Phosphatase (38-126) U/L Troponin I (0.000-0.033) ng/mL Serum Total Protein (6.3-8.2) g/dL Albumin (3.5-5.0) g/dL Urine Color Yellow (Yellow) Urine Appearance Clear (Clear) Urine pH 7.5 (4.6-8.0) Ur Specific [place] <=1.005 (1.005-1.030) Urine Protein Negative (Negative) Urine Glucose (UA) Negative (Negative) mg/dL Urine Ketones Negative (Negative) Urine Blood Negative (Negative) Urine Nitrite Negative (Negative) Urine Bilirubin Negative (Negative) Urine Urobilinogen 0.2 (0.2) mg/dL Ur Leukocyte Esterase Trace A (Negative) U Hyaline Cast (Auto) NONE SEEN (0-2) /LPF Urine Microscopic RBC 0-2 (0-5) /HPF Urine Microscopic WBC 0-2 (0-5) /HPF Ur Epithelial Cells None Seen (None Seen) /HPF Urine Bacteria None Seen (None Seen) /HPF Urine Culture Reflexed NO (NO) 09/21/24 09/21/24 09/21/24 Range/Units 10:18 10:18 12:40 WBC (3.98-10.04) x10^3/uL RBC (3.93-5.22) x10^6/uL Hgb (11.2-15.7) g/dL Hct (34.1-44.9) % MCV (79.4-94.8) fL MCH (25.6-32.2) pg MCHC (32.2-35.5) g/dL RDW (11.7-14.4) % Plt Count (182-369) x10^3/uL MPV (9.4-12.3) fL Gran % (34.0-71.1) % Immature Gran % (Auto) (0.001-0.429) % Nucleat RBC Rel Count (0.00-0.2) % Eos # (Auto) (0.04-0.36) x10^3/uL Immature Gran # (Auto) (0.001-0.031) x10^3u/L Absolute Lymphs (auto) (1.18-3.74) x10^3/uL Absolute Monos (auto) (0.24-0.86) x10^3/uL Absolute Nucleated RBC (0.00-0.012) x10^3u/L Lymphocytes % (19.3-51.7) % Monocytes % (4.7-12.5) % Eosinophils % (0.7-5.8) % Basophils % (0.1-1.2) % Absolute Granulocytes (1.56-6.13) x10^3/uL Basophils # (0.01-0.08) x10^3/uL D-Dimer (0.0-0.50) mg/L Sodium 141 (135-145) mmol/L Potassium 4.5 (3.5-5.1) mmol/L Chloride 106 (98-107) mmol/L Carbon Dioxide 22 (22-30) mmol/L Anion Gap 17.7 H (5-15) MEQ/L BUN 19 H (7-17) mg/dL Creatinine 0.64 (0.52-1.04) mg/dL Estimated GFR 88.2 ML/MIN Glucose 114 H (74-106) mg/dL Calcium 9.3 (8.4-10.2) mg/dL Total Bilirubin 0.60 (0.2-1.3) mg/dL AST 29 (14-36) U/L ALT 18 (0-35) U/L Alkaline Phosphatase 102 (38-126) U/L Troponin I < 0.012 < 0.012 (0.000-0.033) ng/mL Serum Total Protein 7.6 (6.3-8.2) g/dL Albumin 4.5 (3.5-5.0) g/dL Urine Color (Yellow) Urine Appearance (Clear) Urine pH (4.6-8.0) Ur Specific [place] (1.005-1.030) Urine Protein (Negative) Urine Glucose (UA) (Negative) mg/dL Urine Ketones (Negative) Urine Blood (Negative) Urine Nitrite (Negative) Urine Bilirubin (Negative) Urine Urobilinogen (0.2) mg/dL Ur Leukocyte Esterase (Negative) U Hyaline Cast (Auto) (0-2) /LPF Urine Microscopic RBC (0-5) /HPF Urine Microscopic WBC (0-5) /HPF Ur Epithelial Cells (None Seen) /HPF Urine Bacteria (None Seen) /HPF Urine Culture Reflexed (NO) 09/21/24 09/22/24 Range/Units 17:57 05:12 WBC 8.7 (3.98-10.04) x10^3/uL RBC 4.80 (3.93-5.22) x10^6/uL Hgb 13.0 (11.2-15.7) g/dL Hct 40.3 (34.1-44.9) % MCV 84.0 (79.4-94.8) fL MCH 27.1 (25.6-32.2) pg MCHC 32.3 (32.2-35.5) g/dL RDW 14.0 (11.7-14.4) % Plt Count 246 (182-369) x10^3/uL MPV 9.0 L (9.4-12.3) fL Gran % 66.6 (34.0-71.1) % Immature Gran % (Auto) 0.3 (0.001-0.429) % Nucleat RBC Rel Count 0.0 (0.00-0.2) % Eos # (Auto) 0.16 (0.04-0.36) x10^3/uL Immature Gran # (Auto) 0.03 (0.001-0.031) x10^3u/L Absolute Lymphs (auto) 2.11 (1.18-3.74) x10^3/uL Absolute Monos (auto) 0.54 (0.24-0.86) x10^3/uL Absolute Nucleated RBC 0.00 (0.00-0.012) x10^3u/L Lymphocytes % 24.4 (19.3-51.7) % Monocytes % 6.2 (4.7-12.5) % Eosinophils % 1.8 (0.7-5.8) % Basophils % 0.7 (0.1-1.2) % Absolute Granulocytes 5.75 (1.56-6.13) x10^3/uL Basophils # 0.06 (0.01-0.08) x10^3/uL D-Dimer (0.0-0.50) mg/L Sodium (135-145) mmol/L Potassium (3.5-5.1) mmol/L Chloride (98-107) mmol/L Carbon Dioxide (22-30) mmol/L Anion Gap (5-15) MEQ/L BUN (7-17) mg/dL Creatinine (0.52-1.04) mg/dL Estimated GFR ML/MIN Glucose (74-106) mg/dL Calcium (8.4-10.2) mg/dL Total Bilirubin (0.2-1.3) mg/dL AST (14-36) U/L ALT (0-35) U/L Alkaline Phosphatase (38-126) U/L Troponin I < 0.012 (0.000-0.033) ng/mL Serum Total Protein (6.3-8.2) g/dL Albumin (3.5-5.0) g/dL Urine Color (Yellow) Urine Appearance (Clear) Urine pH (4.6-8.0) Ur Specific [place] (1.005-1.030) Urine Protein (Negative) Urine Glucose (UA) (Negative) mg/dL Urine Ketones (Negative) Urine Blood (Negative) Urine Nitrite (Negative) Urine Bilirubin (Negative) Urine Urobilinogen (0.2) mg/dL Ur Leukocyte Esterase (Negative) U Hyaline Cast (Auto) (0-2) /LPF Urine Microscopic RBC (0-5) /HPF Urine Microscopic WBC (0-5) /HPF Ur Epithelial Cells (None Seen) /HPF Urine Bacteria (None Seen) /HPF Urine Culture Reflexed (NO) Radiology Exams: Radiology Procedures Category Date Time Status CHEST 1 VIEW (PORTABLE) Stat Exams 09/21/24 11:37 Completed CHEST WITH CONTRAST [CT] Stat Exams 09/21/24 14:25 Completed KNEE (1 OR 2 VIEW) Stat Exams 09/21/24 10:07 Completed VENOUS UNILAT/LIMITED EXTREMIT [US] Stat Exams 09/21/24 10:08 Completed Medications: Medications Generic Name Dose Route Start Last Admin Trade Name Freq PRN Reason Stop Dose Admin Acetaminophen 650 mg 09/21/24 14:25 Acetaminophen 325 Mg Tablet PO 10/21/24 14:24 Q4H PRN PRN PAIN, FEVER, HEADACHE Amlodipine Besylate 5 mg 09/22/24 10:00 Amlodipine Besylate 5 Mg Tablet PO 10/22/24 09:59 QAM WALE Diclofenac Sodium 2 gm 09/21/24 17:10 Diclofenac Sodium 100 Gm Gel..Gram. TP 10/21/24 17:09 QID PRN PRN PAIN Docusate Sodium 100 mg 09/21/24 14:25 Docusate Sodium 100 Mg Capsule PO 10/21/24 14:24 BIDPRN PRN CONSTIPATION Enoxaparin Sodium 40 mg 09/21/24 15:00 09/21/24 15:04 Enoxaparin Sodium 40 Mg/0.4 Ml Syringe SQ 10/21/24 14:59 40 mg DAILY WALE Administration Ondansetron HCl 4 mg 09/21/24 14:25 Ondansetron Hcl 4 Mg/2 Ml Vial IV 10/21/24 14:24 Q6H PRN PRN NAUSEA/VOMITING Tramadol HCl 50 mg 09/21/24 14:25 09/22/24 02:17 Tramadol Hcl 50 Mg Tablet PO 10/21/24 14:24 50 mg QID PRN PRN Administration PAIN Discontinued Medications Generic Name Dose Route Start Last Admin Trade Name Freq PRN Reason Stop Dose Admin Amlodipine Besylate 5 mg 09/21/24 13:19 09/21/24 13:32 Amlodipine Besylate 5 Mg Tablet PO 09/21/24 13:20 5 mg STAT ONE Administration Amlodipine Besylate Confirm 09/21/24 13:31 Amlodipine Besylate 5 Mg Tablet Administered 09/21/24 13:32 Dose 5 mg .ROUTE .STK-MED ONE Aspirin 324 mg 09/21/24 13:18 09/21/24 13:32 Aspirin 81 Mg Tab.Chew PO 09/21/24 13:19 324 mg STAT ONE Administration Aspirin Confirm 09/21/24 13:31 Aspirin 81 Mg Tab.Chew Administered 09/21/24 13:32 Dose 324 mg .ROUTE .STK-MED ONE Nitroglycerin 1 gm 09/21/24 13:19 09/21/24 13:33 Nitroglycerin 1 Gm Packet TOP 09/21/24 13:20 1 gm STAT ONE Administration Nitroglycerin Confirm 09/21/24 13:31 Nitroglycerin 1 Gm Packet Administered 09/21/24 13:32 Dose 1 gm .ROUTE .STK-MED ONE Assessment/Plan (1) Chest pain Current Visit: Yes Status: Acute Assessment & Plan: -Troponin negative, EKG reassuring. Pain is non-exertional and intermittent. -Elevated D-dimer concerning for occult thromboembolic disease despite negative lower extremity Doppler -CTA chest to evaluate for pulmonary embolism -Continue telemetry monitoring. Trend serial troponins and repeat EKG 09/21: -Trops x 3 negative -CTA chest negative for PE and no acute findings - does have a small nodule in the upper in right lower lobes that will need f/u on as OP Code(s): R07.9 - CHEST PAIN, UNSPECIFIED (2) Hypertensive urgency Current Visit: Yes Status: Acute Assessment & Plan: -No end-organ dysfunction noted on exam or labs -Initiate oral antihypertensives amlodipine 5mg- titrate as tolerated -Monitor blood pressure every 4 hours. Gradual reduction of BP over 2448 hours -Consider evaluation for secondary causes of hypertension if persistent 09/21: -BP stable overnight on amlodipine Code(s): I16.0 - HYPERTENSIVE URGENCY (3) Pain of right lower extremity Current Visit: Yes Status: Acute Assessment & Plan: -Negative Doppler and absence of swelling or systemic signs suggest musculoskeletal etiology, possibly exacerbation of baseline osteoarthritis -Pain control with acetaminophen/[place] -Encourage ambulation. Monitor for evolving signs that warrant repeat imaging Code(s): M79.604 - PAIN IN RIGHT LEG (4) Opacity noted on imaging study Current Visit: Yes Status: Acute Assessment & Plan: -No fever, leukocytosis, or respiratory complaints; likely atelectasis -Incentive spirometry and early ambulation -Monitor vitals and WBC. Hold antibiotics unless signs of infection emerge VTE: Lovenox Dispo: 1-2 days Code Status: Full code Diet: Regular Code(s): R93.89 - ABNORMAL FINDINGS ON DX IMAGING OF OTH BODY STRUCTURES Code(s): R07.9 - CHEST PAIN, UNSPECIFIED (2) Hypertensive urgency Current Visit: Yes Status: Acute Code(s): I16.0 - HYPERTENSIVE URGENCY (3) Pain of right lower extremity Current Visit: Yes Status: Acute Code(s): M79.604 - PAIN IN RIGHT LEG (4) Opacity noted on imaging study Current Visit: Yes Status: Acute Code(s): R93.89 - ABNORMAL FINDINGS ON DX IMAGING OF OTH BODY STRUCTURES
[2024-09-22 05:32] LABS: ANION GAP 13.2 MEQ/L (5-15); BILIRUBIN,TOTAL 0.5 mg/dL (0.2-1.3); Creatinine 1 0.72 mg/dL (0.52-1.04); EST GLOMERULAR FILTRATION RATE 83.4 ML/MIN; Potassium 4.1 mmol/L (3.5-5.1); Total Protein 7.1 g/dL (6.3-8.2)
[2024-09-22] MEDS: NORVASC 5 MG PO SCH (10:39)
[2024-09-22 11:19] VITALS: BP 179/84; PULSE 78; RESP 22; TEMP 98.2; O2SAT 95
--- NOTE | 2024-09-22 12:07 | PCM.DS ---
Discharge Summary Date of Admission: 09/21/24 13:51 Date of Discharge: 09/22/24 Admitting Physician: LISSETTE CRUZ MD Primary Care Provider: AZAM ROBERT Allergies Allergies No Known Drug Allergies Allergy (Verified 09/21/24 13:56) Hospital Summary - Hospital Course Hospital Course: Ms. Jo is an 84-year-old female with no documented past medical history and no established primary care provider, who presented to the emergency department on 09/21/24, for evaluation of right lower extremity pain and newly reported intermittent chest discomfort. She described two days of persistent right leg pain, extending from the distal thigh to the foot, distinct in character and severity from her baseline chronic right knee discomfort. She denied trauma, redness, swelling, or recent immobilization. Additionally, she reported a three-day history of intermittent, non-exertional, sharp left-sided chest pain, each episode lasting less than three minutes, triggered by movement and relieved by rest. There were no associated symptoms such as dyspnea, nausea, or diaphoresis, and she had no prior history of cardiac disease. In the emergency department, the patient was found to be hypertensive to 218 mmHg systolic. EKG demonstrated sinus rhythm with no acute changes, and troponin series was negative. Given her symptoms and elevated D-dimer, she underwent further evaluation to rule out thromboembolic disease. Lower extremity venous Doppler was negative for DVT. Chest X-ray demonstrated a subtle right basilar opacity concerning for atelectasis or early infiltrate. CTA chest was obtained and was negative for pulmonary embolism or acute pathology but revealed a small nodule in the upper aspect of the right lower lobe, for which outpatient follow- up is recommended. Right knee radiographs showed chronic degenerative changes consistent with osteoarthritis. She remained afebrile with no leukocytosis and stable renal function. Serial troponins and EKGs remained normal throughout her admission. The patient was managed for hypertensive urgency with initiation of oral amlodipine 5 mg daily, with good response and blood pressure stabilization. Her chest pain resolved without intervention and was felt to be non-cardiac in origin. Her right leg pain was attributed to musculoskeletal causes, likely an exacerbation of chronic osteoarthritis, and managed conservatively with analgesics and encouragement of ambulation. She was observed without signs of evolving pathology and remained clinically stable throughout her hospitalization. She is being discharged in improved condition with instructions to follow up with a primary care provider and cardiology for continued blood pressure management and further evaluation of the pulmonary nodule. She was advised to continue amlodipine and to monitor her blood pressure at home if possible. I spent 35 minutes [id number] with the patient on the day of discharge performing discharge exam, discussing hospital stay and discharge instructions with patient and caregivers, preparation of discharge records, prescriptions & referral forms and addressing any questions/concerns the patient had as documented above. - Vitals & Intake/Output Vital Signs: Vital Signs Temperature 98.2 F 09/22/24 11:18 Pulse Rate 78 09/22/24 11:18 Respiratory Rate 22 09/22/24 11:18 Blood Pressure 179/84 09/22/24 11:18 O2 Sat by Pulse Oximetry 95 09/22/24 11:18 Intake & Output: Intake & Output 09/20/24 09/21/24 09/22/24 09/23/24 11:59 11:59 11:59 11:59 Intake Total 720 Output Total 800 Balance -80 Weight 96 kg 92.8 kg - Lab Result Diagrams: 09/22/24 05:12 09/22/24 05:12 Lab Results-Last 24 Hrs: Lab Results-Last 24 Hours 09/21/24 09/21/24 09/22/24 Range/Units 12:40 17:57 05:12 WBC 8.7 (3.98-10.04) x10^3/uL RBC 4.80 (3.93-5.22) x10^6/uL Hgb 13.0 (11.2-15.7) g/dL Hct 40.3 (34.1-44.9) % MCV 84.0 (79.4-94.8) fL MCH 27.1 (25.6-32.2) pg MCHC 32.3 (32.2-35.5) g/dL RDW 14.0 (11.7-14.4) % Plt Count 246 (182-369) x10^3/uL MPV 9.0 L (9.4-12.3) fL Gran % 66.6 (34.0-71.1) % Immature Gran % (Auto) 0.3 (0.001-0.429) % Nucleat RBC Rel Count 0.0 (0.00-0.2) % Eos # (Auto) 0.16 (0.04-0.36) x10^3/uL Immature Gran # (Auto) 0.03 (0.001-0.031) x10^3u/L Absolute Lymphs (auto) 2.11 (1.18-3.74) x10^3/uL Absolute Monos (auto) 0.54 (0.24-0.86) x10^3/uL Absolute Nucleated RBC 0.00 (0.00-0.012) x10^3u/L Lymphocytes % 24.4 (19.3-51.7) % Monocytes % 6.2 (4.7-12.5) % Eosinophils % 1.8 (0.7-5.8) % Basophils % 0.7 (0.1-1.2) % Absolute Granulocytes 5.75 (1.56-6.13) x10^3/uL Basophils # 0.06 (0.01-0.08) x10^3/uL Sodium (135-145) mmol/L Potassium (3.5-5.1) mmol/L Chloride (98-107) mmol/L Carbon Dioxide (22-30) mmol/L Anion Gap (5-15) MEQ/L BUN (7-17) mg/dL Creatinine (0.52-1.04) mg/dL Estimated GFR ML/MIN Glucose (74-106) mg/dL Calcium (8.4-10.2) mg/dL Total Bilirubin (0.2-1.3) mg/dL AST (14-36) U/L ALT (0-35) U/L Alkaline Phosphatase (38-126) U/L Troponin I < 0.012 < 0.012 (0.000-0.033) ng/mL Serum Total Protein (6.3-8.2) g/dL Albumin (3.5-5.0) g/dL 09/22/24 Range/Units 05:12 WBC (3.98-10.04) x10^3/uL RBC (3.93-5.22) x10^6/uL Hgb (11.2-15.7) g/dL Hct (34.1-44.9) % MCV (79.4-94.8) fL MCH (25.6-32.2) pg MCHC (32.2-35.5) g/dL RDW (11.7-14.4) % Plt Count (182-369) x10^3/uL MPV (9.4-12.3) fL Gran % (34.0-71.1) % Immature Gran % (Auto) (0.001-0.429) % Nucleat RBC Rel Count (0.00-0.2) % Eos # (Auto) (0.04-0.36) x10^3/uL Immature Gran # (Auto) (0.001-0.031) x10^3u/L Absolute Lymphs (auto) (1.18-3.74) x10^3/uL Absolute Monos (auto) (0.24-0.86) x10^3/uL Absolute Nucleated RBC (0.00-0.012) x10^3u/L Lymphocytes % (19.3-51.7) % Monocytes % (4.7-12.5) % Eosinophils % (0.7-5.8) % Basophils % (0.1-1.2) % Absolute Granulocytes (1.56-6.13) x10^3/uL Basophils # (0.01-0.08) x10^3/uL Sodium 136 (135-145) mmol/L Potassium 4.1 (3.5-5.1) mmol/L Chloride 103 (98-107) mmol/L Carbon Dioxide 24 (22-30) mmol/L Anion Gap 13.2 (5-15) MEQ/L BUN 13 (7-17) mg/dL Creatinine 0.72 (0.52-1.04) mg/dL Estimated GFR 83.4 ML/MIN Glucose 127 H (74-106) mg/dL Calcium 9.0 (8.4-10.2) mg/dL Total Bilirubin 0.50 (0.2-1.3) mg/dL AST 27 (14-36) U/L ALT 17 (0-35) U/L Alkaline Phosphatase 92 (38-126) U/L Troponin I (0.000-0.033) ng/mL Serum Total Protein 7.1 (6.3-8.2) g/dL Albumin 4.0 (3.5-5.0) g/dL - Radiology Exams Ordered Rad Exams-Entire Visit: Radiology Procedures Category Date Time Status CHEST 1 VIEW (PORTABLE) Stat Exams 09/21/24 11:37 Completed CHEST WITH CONTRAST [CT] Stat Exams 09/21/24 14:25 Completed KNEE (1 OR 2 VIEW) Stat Exams 09/21/24 10:07 Completed VENOUS UNILAT/LIMITED EXTREMIT [US] Stat Exams 09/21/24 10:08 Completed - Procedures and Test Procedures and Tests throughout Hospitalization: Therapy Orders & Screens 09/21/24 14:25 EKG REPEAT IN AM Comment: Diagnosis: Chest pain, ACS Discharge Exam General Appearance: no apparent distress Neurologic Exam: alert, oriented x 3, cooperative Eye Exam: PERRL Ears, Nose, Throat Exam: normal ENT inspection Neck Exam: normal inspection Respiratory Exam: normal breath sounds, lungs clear Cardiovascular Exam: regular rate/rhythm, normal heart sounds Gastrointestinal/Abdomen Exam: soft, normal bowel sounds Pelvic Exam: deferred Rectal Exam: deferred Back Exam: normal inspection Extremity Exam: normal inspection Skin Exam: normal color Final Diagnosis/Problem List - Final Discharge Diagnosis/Problem (1) Chest pain Current Visit: Yes Status: Resolved Code(s): R07.9 - CHEST PAIN, UNSPECIFIED (2) Hypertensive urgency Current Visit: Yes Status: Resolved Code(s): I16.0 - HYPERTENSIVE URGENCY (3) Pain of right lower extremity Current Visit: Yes Status: Chronic Code(s): M79.604 - PAIN IN RIGHT LEG (4) Opacity noted on imaging study Current Visit: Yes Status: Ruled-out Code(s): R93.89 - ABNORMAL FINDINGS ON DX IMAGING OF OTH BODY STRUCTURES - Discharge Discharge Date: 09/22/24 Disposition: Home, Self-Care Condition: Stable Prescriptions: New Diclofenac Sodium 2 gm TP QID PRN PRN 30 Days #1 kit PRN Reason: Pain Amlodipine Besylate 5 mg [Norvasc 5 mg] 5 mg PO QAM 30 Days #30 tablet Tramadol HCl 50 mg [Ultram 50 mg] 50 mg PO QID PRN PRN 3 Days #12 tablet PRN Reason: Pain Follow up with: AZAM ROBERT MD [Primary Care Provider, [facility]]
== END 2024-09-22 12:44 | disposition home or self-care (01) ==
LOC: ED 09:37 → MED SURG 13:51
PROVIDERS: ADMIT Internal Medicine; ATTEND Internal Medicine
DX: R07.9 Chest pain, unspecified (principal); I16.0 Hypertensive urgency; M79.604 Pain in right leg; R93.89 Abnormal findings on diagnostic imaging of other specified body structures
CPT/HCPCS: 36415; 71045; 71260; 73560; 80053; 81001; 84484; 85025; 85379; 93005; 93041; 93971; 94760; 99285; Q3014; 93268; J1650; A9270-GY; G0378

== ENCOUNTER 2025-04-04 16:03 | Emergency (ER) | payer MEDICARE ==
--- NOTE | 2025-04-04 16:57 | ERPHSYRPT ---
- History of Present Illness Time Seen by Provider: 04/04/25 16:54 Historian: patient Exam Limitations: no limitations Patient Subjective Stated Complaint: PT STATES SHE IS HAVING ABDOMINAL PAIN Triage Nursing Assessment: PT ARRIVES TO THE ED VIA PRIVATE VEHICLE WITH FAMILY. PT WAS ABLE TO AMBULATE INTO THE ED WITHOUT DIFFICULTY. PT WAS ABLE TO GIVE A URINE SAMPLE, AND GET INTO THE ER COT INDEPENDENTLY. PT IS ALERT AND ORIENTED, NO SIGNS OF RESPIRATORY DISTRESS, PULSES PRESENT AND EQUAL BILATERALLY. PT STATES THAT 2 DAYS AGO SHE STARTED HAVING SHARP PAIN 7/10 IN HER LEFT LOWER ABDOMINAL QUADRANT. PT STATES THIS PAIN IS RADIATING INTO HER LOWER BACK. PT STATES THAT THE PAIN WENT AWAY FOR A LITTLE BIT BUT THEN CAME BACK AND HAS NOT LET UP SINCE. PT STATES THEY TOOK MOTRIN AT HOME AT 1400 TODAY WITHOUT ANY RELIEF. PT STATES HER LAST BOWEL MOVEMENT WAS 04/04/2025 AND EVERYTHING WAS NORMAL. PT STATES SHE HAS BEEN HAVING NAUSEA AND DRY HEAVING BUT NO VOMITING. PT ABDOMEN IS SOFT ON PALPATION AND PT DOES NOT HAVE TENDERNESS WITH PALPATION. THERE ARE NO OBVIOUS DOFORMITIES, SWELLING, BRUISING, OR PUNCTURES TO THE ABDOMEN. Physician History: Patient is an 84-year-old female past medical history significant for hypertension, angioplasty presents to our ED for evaluation of abdominal pain/right flank pain pain began 2 days ago. Pain described as an ache that is primarily at the left flank.. Pain worse with palpation pain improves with rest. No trauma no fever no diarrhea no rash. Patient otherwise feels well. She voices no other complaints or concerns at this time. Portions of this note were created with voice recognition technology. There may be grammatical, spelling, punctuation or sound alike errors Timing/Duration: today Activities at Onset: none Quality: aching Abdominal Pain Onset Location: generalized abdomen Pain Radiation: no radiation Severity of Pain-Max: moderate Severity of Pain-Current: mild Modifying Factors: Improves With: palpation Associated Symptoms: denies symptoms Previous symptoms: no prior history Allergies/Adverse Reactions: No Known Drug Allergies Allergy (Verified 04/04/25 16:15) Home Medications: Duloxetine HCl 30 mg PO DAILY 04/04/25 [History] Hx Tetanus, Diphtheria Vaccination/Date Given: No Hx Influenza Vaccination/Date Given: No Hx Pneumococcal Vaccination/Date Given: No Immunizations Up to Date: Yes Travel Risk - International Travel Have you traveled outside of the country in past 3 weeks: No - Emerging Infectious Disease Are you exhibiting symptoms associated with any current EIDs: Yes Symptoms: Abdominal Pain - Review of Systems All Other Systems: Reviewed and Negative - Past Medical History Pertinent Past Medical History: Yes Neurological History: No Pertinent History ENT History: Cataracts Cardiac History: No Pertinent History, Hypertension Respiratory History: No Pertinent History Endocrine Medical History: No Pertinent History Musculoskeletal History: Arthritis GI Medical History: Hernia History: No Pertinent History Psycho-Social History: No Pertinent History Female Reproductive Disorders: No Pertinent History Other Medical History: hiatal hernia - Past Surgical History Past Surgical History: Yes Neuro Surgical History: No Pertinent History Cardiac: Angioplasty Respiratory: No Pertinent History Gastrointestinal: Appendectomy Genitourinary: No Pertinent History Musculoskeletal: No Pertinent History Female Surgical History: Hysterectomy Other Surgical History: "lens in eye", colonoscopy,breast bx Significant Family History: no pertinent family hx - Social History Smoking Status: Never smoker Exposure to second hand smoke: No Drug Use: none - Social Determinants of Health Will the patient participate in the screening: Yes Do you worry about a steady place to live?: No Do you have any problems with any of the following?: No known problems In the past 12 months,have you had to go without utilities?: No Transportation Issues: No Has anyone in your support network made you feel unsafe?: No Have you or anyone in your house had to go w/o enough food: No - Nursing Vital Signs Nursing Vital Signs: Initial Vital Signs Temperature 97.8 F 04/04/25 16:13 Pulse Rate 98 H 04/04/25 16:13 Respiratory Rate 15 04/04/25 16:13 Blood Pressure 178/81 04/04/25 16:13 O2 Sat by Pulse Oximetry 99 04/04/25 16:13 Pain Scale Pain Intensity 0 - Physical Exam General Appearance: no apparent distress, alert Eye Exam: PERRL/EOMI, eyes nml inspection Ears, Nose, Throat Exam: normal ENT inspection, moist mucous membranes Neck Exam: normal inspection, full range of motion Respiratory Exam: normal breath sounds, lungs clear, No respiratory distress Cardiovascular Exam: regular rate/rhythm, normal heart sounds Gastrointestinal/Abdomen Exam: soft, tenderness (Tenderness to palpation right flank), No mass Back Exam: normal inspection, normal range of motion, No CVA tenderness, No vertebral tenderness Extremity Exam: normal inspection, normal range of motion, pelvis stable Neurologic Exam: alert, oriented x 3, cooperative, sensation nml, No motor deficits Skin Exam: normal color, warm, dry Lymphatic Exam: No adenopathy SpO2 Interpretation: normal SpO2: 95 O2 Delivery: Room Air - Course Nursing assessment & vital signs reviewed: Yes - CT Exams Abdomen/Pelvis CT Interpretation: Tele-radiologist Report (New 8 mm calculus proximal left ureter at L2-L3 level with mild hydronephrosis. Stable hiatal hernia left renal cyst diverticulosis) Ordered Tests: Active Orders 24 hr Category Date Time Status IV Insertion STAT Care 04/04/25 16:57 Active ABDOMEN AND PELVIS W/0 CONTRAS [CT] Stat Exams 04/04/25 16:58 Taken CBC W DIFF Stat Lab 04/04/25 17:20 Completed CMP Stat Lab 04/04/25 17:20 Completed CULTURE,URINE Stat Lab 04/04/25 17:20 Received UA W/RFX UR CULTURE Stat Lab 04/04/25 17:20 Completed Medication Summary Generic Name Dose Route Start Last Admin Trade Name Freq PRN Reason Stop Dose Admin Sodium Chloride 1,000 mls @ 100 mls/hr 04/04/25 17:00 04/04/25 17:38 Sodium Chloride 0.9% 1000 Ml IV 05/04/25 16:59 100 mls/hr .Q10H WALE Administration Discontinued Medications Generic Name Dose Route Start Last Admin Trade Name Freq PRN Reason Stop Dose Admin Ketorolac Tromethamine 30 mg 04/04/25 16:57 04/04/25 17:38 Ketorolac Tromethamine 30 Mg/Ml Inj IV 04/04/25 16:58 30 mg STAT ONE Administration Ketorolac Tromethamine Confirm 04/04/25 17:37 Ketorolac Tromethamine 30 Mg/Ml Inj Administered 04/04/25 17:38 Dose 30 mg .ROUTE .K-MED ONE Lab/Rad Data: Laboratory Result Diagrams 04/04/25 17:20 04/04/25 17:20 Laboratory Results 04/04/25 04/04/25 04/04/25 Range/Units 17:20 17:20 17:20 WBC 8.7 (3.98-10.04) x10^3/uL RBC 5.00 (3.93-5.22) x10^6/uL Hgb 13.5 (11.2-15.7) g/dL Hct 43.5 (34.1-44.9) % MCV 87.0 (79.4-94.8) fL MCH 27.0 (25.6-32.2) pg MCHC 31.0 L (32.2-35.5) g/dL RDW 14.1 (11.7-14.4) % Plt Count 271 (182-369) x10^3/uL MPV 8.7 L (9.4-12.3) fL Gran % 61.0 (34.0-71.1) % Immature Gran % (Auto) 0.2 (0.001-0.429) % Nucleat RBC Rel Count 0.0 (0.00-0.2) % Eos # (Auto) 0.19 (0.04-0.36) x10^3/uL Immature Gran # (Auto) 0.02 (0.001-0.031) x10^3u/L Absolute Lymphs (auto) 2.58 (1.18-3.74) x10^3/uL Absolute Monos (auto) 0.54 (0.24-0.86) x10^3/uL Absolute Nucleated RBC 0.00 (0.00-0.012) x10^3u/L Lymphocytes % 29.8 (19.3-51.7) % Monocytes % 6.2 (4.7-12.5) % Eosinophils % 2.2 (0.7-5.8) % Basophils % 0.6 (0.1-1.2) % Absolute Granulocytes 5.29 (1.56-6.13) x10^3/uL Basophils # 0.05 (0.01-0.08) x10^3/uL Sodium 136 (135-145) mmol/L Potassium 4.5 (3.5-5.1) mmol/L Chloride 103 (98-107) mmol/L Carbon Dioxide 23 (22-30) mmol/L Anion Gap 13.9 (5-15) MEQ/L BUN 16 (7-17) mg/dL Creatinine 0.91 (0.52-1.04) mg/dL Estimated GFR 63.0 ML/MIN Glucose 110 H (74-106) mg/dL Calcium 8.7 (8.4-10.2) mg/dL Total Bilirubin 0.40 (0.2-1.3) mg/dL AST 58 H (14-36) U/L ALT 53 H (0-35) U/L Alkaline Phosphatase 126 (38-126) U/L Serum Total Protein 8.1 (6.3-8.2) g/dL Albumin 4.2 (3.5-5.0) g/dL Urine Color Yellow (Yellow) Urine Appearance Clear (Clear) Urine pH 6.5 (4.6-8.0) Ur Specific [place] 1.020 (1.005-1.030) Urine Protein Negative (Negative) Urine Glucose (UA) Negative (Negative) mg/dL Urine Ketones Negative (Negative) Urine Blood Moderate A (Negative) Urine Nitrite Negative (Negative) Urine Bilirubin Negative (Negative) Urine Urobilinogen 1.0 A (0.2) mg/dL Ur Leukocyte Esterase Trace A (Negative) U Hyaline Cast (Auto) NONE SEEN (0-2) /LPF Urine Microscopic RBC 21-50 A (0-5) /HPF Urine Microscopic WBC 3-5 (0-5) /HPF Ur Epithelial Cells Moderate A (None Seen) /HPF Urine Bacteria None Seen (None Seen) /HPF Urine Culture Reflexed YES (NO) - Progress Progress: improved Progress Note: Case discussed with urologist Dr. Jasso who advises transfer to hospital at 9:05 PM. We are currently awaiting return call from hospitalist for acceptance 04/04/25 21:08 Case discussed with hospitalist at [facility] who accepts transfer at 9:54 PM. Plan of care discussed with patient. She agrees to transfer to [facility] for further evaluation and treatment.Patient is an 84-year-old female past medical history significant for hypertension, angioplasty presents to our ED for evaluation of abdominal pain/right flank pain pain began 2 days ago. Physical exam reveals tenderness to palpation left flank. CT scan reveals a obstructing left proximal 8 mm ureterolithiasis with associated hydronephrosis. Portions of this note were created with voice recognition technology. There may be grammatical, spelling, punctuation or sound alike errors History obtained from patient. Differential diagnosis includes nephrolithiasis, musculoskeletal strain, trauma, UTI, pyelonephritis Complexity of problems addressed is moderate acute complicated. No critical care time. Complex of data reviewed and analyzed is extensive. Test ordered chest reviewed results analyzed and correlated clinically with history and physical exam. Management discussed with hospitalist and urologist from [facility]. Risk of complication and or risk of morbidity/mortality of patient management is high. Patient requires transfer to higher level of care. Vital stable. Time spent to transfer patient approximately 20 minutes. Plan of care established for shared decision making. No social determinants of health present to impede follow-up. Portions of this note were created with voice recognition technology. There may be grammatical, spelling, punctuation or sound alike errors 04/04/25 21:54 Counseled pt/family regarding: lab results, diagnosis, rad results - Departure Departure Disposition: Home Clinical Impression: Ureterolithiasis, Hydronephrosis, Renal cyst, Diverticulosis Condition: Stable Critical Care Time: No Referrals: AZAM ROBERT MD [Primary Care Provider, [facility]] - Follow up/PCP as directed
[2025-04-04 17:28] LABS: BASOPHIL % 0.6 % (0.1-1.2); Basophil (Absolute #) 0.05 x10^3/uL (0.01-0.08); Eosinophil (Absolute #) 0.19 x10^3/uL (0.04-0.36); Hematocrit 43.5 % (34.1-44.9); Hemoglobin 13.5 g/dL (11.2-15.7); IMMATURE GRAN # 0.02 x10^3u/L (0.001-0.031); IMMATURE GRAN % 0.2 % (0.001-0.429); Lymphocyte (Absolute #) 2.58 x10^3/uL (1.18-3.74); Mean Corpuscular Hemoglobin 27.0 pg (25.6-32.2); Mean Corpuscular Hgb Concent. 31.0 g/dL (32.2-35.5); Monocyte (Absolute #) 0.54 x10^3/uL (0.24-0.86); NUCLEATED RBC # 0.00 x10^3u/L (0.00-0.012); NUCLEATED RBC % 0.0 % (0.00-0.2); Platelet Count 271 x10^3/uL (182-369); Red Blood Count 5.00 x10^6/uL (3.93-5.22); White Blood Count 8.7 x10^3/uL (3.98-10.04)
[2025-04-04 17:35] LABS: Glucose, Urine Negative (Negative); Protein,Urine Dip Negative (Negative); RBC 21-50 /HPF (0-5)
[2025-04-04] MEDS ORDERED: TORAdol 30 mg Injection ONE (17:37)
[2025-04-04] MEDS: TORAdol 30 mg Injection IV ONE (17:38)
[2025-04-04 18:16] LABS: Calcium 8.7 mg/dL (8.4-10.2); Carbon Dioxide 23.0 mmol/L (22-30); Creatinine 1 0.91 mg/dL (0.52-1.04); EST GLOMERULAR FILTRATION RATE 63.0 ML/MIN; Glucose 110.0 mg/dL (74-106); Potassium 4.5 mmol/L (3.5-5.1); SGOT/AST 58.0 U/L (14-36); SGPT/ALT 53.0 U/L (0-35); Total Protein 8.1 g/dL (6.3-8.2)
--- NOTE | 2025-04-05 08:42 | XRAY ---
Indication: Left flank pain. History kidney stones. Multiple contiguous axial images obtained through the abdomen and pelvis without contrast using renal stone protocol. Comparison: January 18, 2023 Lung bases again hyperinflated with new minimal dependent atelectasis. No infiltrate or effusion. Heart not enlarged. Stable moderate-sized hiatal hernia with partial intrathoracic stomach. New 5 x 8 mm proximal left ureteral calculus approximately L2-L3 level. Also new mild hydronephrosis consistent with partial obstructive uropathy. No free fluid/air. Noncontrasted stomach and bowel loops appear nonobstructed. Again scattered descending and sigmoid diverticulosis without diverticulitis. Stable small left lower renal exophytic cyst. Remaining liver, gallbladder, pancreas, spleen, adrenal glands, right kidney, right ureter, and bladder are unremarkable for noncontrast exam. Again mild scattered aortoiliac calcifications without AAA. Osseous structures intact again with osteopenia and moderate degenerative changes throughout the thoracolumbar spine. Impression: 1. New 5 x 8 mm proximal left ureteral calculus producing partial obstruction as detailed. 2. Again chronic findings including hiatal hernia with partial intrathoracic stomach, left renal cyst, colonic diverticulosis, arteriosclerotic disease, and chronic bony findings.
[2025-04-05 17:24] LABS: BASOPHIL % 0.7 % (0.1-1.2); Basophil (Absolute #) 0.07 x10^3/uL (0.01-0.08); Eosinophil (Absolute #) 0.24 x10^3/uL (0.04-0.36); Hematocrit 42.9 % (34.1-44.9); Hemoglobin 13.4 g/dL (11.2-15.7); IMMATURE GRAN # 0.02 x10^3u/L (0.001-0.031); IMMATURE GRAN % 0.2 % (0.001-0.429); Lymphocyte (Absolute #) 2.71 x10^3/uL (1.18-3.74); Mean Corpuscular Hemoglobin 27.3 pg (25.6-32.2); Mean Corpuscular Hgb Concent. 31.2 g/dL (32.2-35.5); Monocyte (Absolute #) 0.82 x10^3/uL (0.24-0.86); NUCLEATED RBC # 0.00 x10^3u/L (0.00-0.012); NUCLEATED RBC % 0.0 % (0.00-0.2); Platelet Count 272 x10^3/uL (182-369); Red Blood Count 4.91 x10^6/uL (3.93-5.22); White Blood Count 9.8 x10^3/uL (3.98-10.04)
[2025-04-05 17:41] LABS: Calcium 8.8 mg/dL (8.4-10.2); Carbon Dioxide 26.0 mmol/L (22-30); Creatinine 1 0.82 mg/dL (0.52-1.04); EST GLOMERULAR FILTRATION RATE 71.4 ML/MIN; Glucose 103.0 mg/dL (74-106); Potassium 4.1 mmol/L (3.5-5.1); SGOT/AST 67.0 U/L (14-36); SGPT/ALT 56.0 U/L (0-35); Total Protein 7.6 g/dL (6.3-8.2)
[2025-04-05 19:11] VITALS: TEMP 98.3
[2025-04-05 19:31] VITALS: BP 175/78; PULSE 90; RESP 16; O2SAT 98
== END 2025-04-05 20:09 | disposition short-term general hospital (02) ==
LOC: ED 16:03
DX: N13.2 Hydronephrosis with renal and ureteral calculous obstruction (principal); N28.1 Cyst of kidney, acquired; K57.90 Diverticulosis of intestine, part unspecified, without perforation or abscess without bleeding; I10 Essential (primary) hypertension; Z79.899 Other long term (current) drug therapy